=== PATIENT | male | born 1965 | race Two or more races ===

== ENCOUNTER 2016-05-22 10:39 | Emergency (ER) | payer MEDICAID ==
[~2016-05-22] VITALS: Ht 167.6 cm; Wt 65.8 kg
[~2016-05-22 10:39] MED LIST: ASPI81CH43; B COCAP; CARV6.2551; DOCU100T; ENAL10TA86; SEVE800T; SIMV-8
[2016-05-22 12:24] LABS: Basophils # (auto) 0.1 uL; Basophils % (auto) 1.9 % (0.0-2.0); DEFINITIVE VIEW TRANSMISSION; Eosinophils # (auto) 0.7 uL; Eosinophils % (auto) 13.9 % (0.0-7.0); Hematocrit 32.4 % (41.0-53.0); Hemoglobin 10.5 g/dL (13.5-17.5); Lymphocytes # (auto) 0.9 uL; Lymphocytes % (auto) 16.7 % (10.0-50.0); Mean Corpuscular Hemoglobin 27.6 pg (28.0-32.0); Mean Corpuscular Hgb Conc. 32.3 g/dL (32.0-36.0); Mean Corpuscular Volume 85.4 fL (80.0-100.0); Mean Platelet Volume 9.5 fL (7.4-10.4); Monocytes # (auto) 0.6 uL; Monocytes % (auto) 11.4 % (0.0-12.0); Neutrophils # (auto) 2.9 uL; Neutrophils % (auto) 56.1 % (37.0-80.0); Platelet Count (auto) 148 10^3/uL (140-450); Red Cell Distribution Width 16.8 % (11.6-16.0); White Blood Cell 5.1 10^3/uL (4.4-10.8)
[2016-05-22 12:32] LABS: Partial Thromboplastin Time 30.5 sec (22.64-33.71)
[2016-05-22 12:38] LABS: BUN/Creatinine Ratio 3.7; Calcium 8.4 mg/dL (8.5-10.1); Potassium 4.1 mmol/L (3.5-5.1)
[2016-05-22 13:04] LABS: INR 1.22 (0.9-1.15); Prothrombin Time 13.2 sec (9.37-12.3)
[2016-05-22 14:02] VITALS: BP 137/83
== END 2016-05-22 15:58 | disposition home or self-care (01) ==
LOC: EDBD 10:39 → ER 10:39
DX: T82.838A Hemorrhage due to vascular prosthetic devices, implants and grafts, initial encounter (principal); I13.11 Hypertensive heart and chronic kidney disease without heart failure, with stage 5 chronic kidney disease, or end stage renal disease; I50.9 Heart failure, unspecified; E11.22 Type 2 diabetes mellitus with diabetic chronic kidney disease; N18.6 End stage renal disease; E78.5 Hyperlipidemia, unspecified; I25.2 Old myocardial infarction; E07.9 Disorder of thyroid, unspecified; Z95.1 Presence of aortocoronary bypass graft; Z90.49 Acquired absence of other specified parts of digestive tract; Z87.891 Personal history of nicotine dependence; Z99.2 Dependence on renal dialysis; Y93.89 Activity, other specified; Y99.8 Other external cause status; Y92.89 Other specified places as the place of occurrence of the external cause
CPT/HCPCS: 36415; 80048; 85025; 85610; 85730; 94761

== ENCOUNTER 2018-05-17 20:35 | Emergency (ER) | payer MEDICAID ==
[~2018-05-17] VITALS: Ht 157.5 cm; Wt 77.1 kg
[2018-05-17 22:04] LABS: Hematocrit 33.2 % (41.0-53.0); Hemoglobin 11.1 g/dL (13.5-17.5); Mean Corpuscular Hemoglobin 30.5 pg (28.0-32.0); Mean Corpuscular Hgb Conc. 33.6 g/dL (32.0-36.0); Platelet Count (auto) 117 10^3/uL (140-450); Red Blood Cells 3.65 10^6/uL (4.5-5.90); Red Cell Distribution Width 15.9 % (11.8-14.3)
[2018-05-17 22:14] LABS: Basophils % (manual) 0 (0.0-2.0); Blast Cells 0; Metamyelocytes % 0; Myelocytes % 0; Promyelocytes % 0; Reactive Lymphocytes 0
[2018-05-17 22:18] LABS: INR 1.09 (0.9-1.15); Partial Thromboplastin Time 29.9 sec (23.78-33.04); Prothrombin Time 11.6 sec (9.27-12.13)
[2018-05-17 22:23] LABS: Albumin 3.4 g/dL (3.4-5.0); Calcium 7.2 mg/dL (8.5-10.1); Potassium 3.3 mmol/L (3.5-5.1)
[2018-05-17 22:25] LABS: BUN/Creatinine Ratio 3.3; Bilirubin, Total 0.7 mg/dL (0.2-1.0); Total Protein 6.8 g/dL (6.4-8.2)
[2018-05-17 23:27] LABS: Band Neutrophils % (manual) 4; Eosinophils % (manual) 14 (0-7); Lymphocytes % (manual) 16 (10.0-50.0); Monocytes % (manual) 12 (0-12)
[2018-05-17 23:54] VITALS: BP 167/89
== END 2018-05-18 00:41 | disposition home or self-care (01) ==
LOC: EDBD 20:35 → ER 20:44
DX: T82.49XA Other complication of vascular dialysis catheter, initial encounter (principal); D63.8 Anemia in other chronic diseases classified elsewhere; I13.2 Hypertensive heart and chronic kidney disease with heart failure and with stage 5 chronic kidney disease, or end stage renal disease; E11.22 Type 2 diabetes mellitus with diabetic chronic kidney disease; N18.6 End stage renal disease; I50.9 Heart failure, unspecified; I25.2 Old myocardial infarction; Z86.73 Personal history of transient ischemic attack (TIA), and cerebral infarction without residual deficits; Z95.1 Presence of aortocoronary bypass graft; Y92.89 Other specified places as the place of occurrence of the external cause; Z99.2 Dependence on renal dialysis; Z87.891 Personal history of nicotine dependence
CPT/HCPCS: 36415; 80053; 85007; 85027; 85610; 85730; 93005

== ENCOUNTER 2019-04-06 15:10 | Emergency (ER) | payer MEDICAID ==
[~2019-04-06] VITALS: Ht 167.6 cm; Wt 68.0 kg
[~2019-04-06 15:10] MED LIST changes: -DOCU100T; +DOCU100T23
[2019-04-06 15:23] VITALS: BP 177/102
== END 2019-04-06 21:00 | disposition left against medical advice (07) ==
LOC: ER 15:10 → EDBD 15:10 → ER 21:00
DX: T82.590A Other mechanical complication of surgically created arteriovenous fistula, initial encounter (principal); I13.2 Hypertensive heart and chronic kidney disease with heart failure and with stage 5 chronic kidney disease, or end stage renal disease; E11.22 Type 2 diabetes mellitus with diabetic chronic kidney disease; N18.6 End stage renal disease; E78.5 Hyperlipidemia, unspecified; I50.9 Heart failure, unspecified; Z86.73 Personal history of transient ischemic attack (TIA), and cerebral infarction without residual deficits; Z99.2 Dependence on renal dialysis; Z79.4 Long term (current) use of insulin; Z87.891 Personal history of nicotine dependence

== ENCOUNTER 2019-11-19 19:48 | Inpatient (IN) | payer MEDICAID ==
[~2019-11-19] VITALS: Ht 154.9 cm; Wt 61.6 kg
[2019-11-19] MEDS ORDERED: ACETAMINOPHEN 325 MG TAB PO ONE (20:30)
[2019-11-19 20:48] LABS: Basophils # (auto) 0 10 ^3/uL (0-0.2); Basophils % (auto) 0.1 % (0.0-2.0); Eosinophils # (auto) 0 10 ^3/uL (0-0.8); Eosinophils % (auto) 0.1 % (0.0-7.0); Hematocrit 32.7 % (41.0-53.0); Hemoglobin 10.4 g/dL (13.5-17.5); Lymphocytes # (auto) 0.3 10 ^3/uL (0.4-5.4); Mean Corpuscular Hemoglobin 27.9 pg (28.0-32.0); Mean Corpuscular Hgb Conc. 31.9 g/dL (32.0-36.0); Mean Corpuscular Volume 87.6 fL (80.0-100.0); Monocytes # (auto) 0.8 10 ^3/uL (0-1.3); Monocytes % (auto) 5.8 % (0.0-12.0); Neutrophils # (auto) 12.6 10 ^3/uL (1.6-8.6); Platelet Count (auto) 162 10^3/uL (140-450); Red Blood Cells 3.73 10^6/uL (4.5-5.90); Red Cell Distribution Width 16.6 % (11.8-14.3); White Blood Cell 13.7 10^3/uL (4.4-10.8)
[2019-11-19 21:08] LABS: Albumin 3.1 g/dL (3.4-5.0); Calcium 8.9 mg/dL (8.5-10.1); Potassium 3.4 mmol/L (3.5-5.1)
[2019-11-19 21:10] LABS: BUN/Creatinine Ratio 7.9
[2019-11-19 21:15] LABS: Bilirubin, Total 0.7 mg/dL (0.2-1.0); Total Protein 7.9 g/dL (6.4-8.2)
[2019-11-19] MEDS ORDERED: cefTRIAXone 1GM/50ML D5W 50 ML IV ONE (21:15)
[2019-11-19 21:33] LABS: INR 1.22 (0.9-1.15); Partial Thromboplastin Time 29.6 sec (23.0-31.2)
[2019-11-19] MEDS ORDERED: metroNIDAZOLE 500MG/100ML 100 ML IV ONE (23:30)
[2019-11-20 00:15] LABS: Amylase 39 U/L (25-115); Lipase 64 U/L (73-393)
[2019-11-20] MEDS ORDERED: ONDANSETRON HCL 4 MG/2 ML VIAL IV PRN (00:45)
[2019-11-20] MEDS ORDERED: MORPHINE SULF INJ 2 MG/ML SYRINGE 1ML IV PRN (00:45)
[2019-11-20] MEDS ORDERED: PANTOPRAZOLE 40 MG/10 ML VIAL INJ IV ONE (00:45)
[2019-11-20] MEDS ORDERED: DEXTROSE (50%) 50ML SYRG IV PRN ×2 (00:45→03:30)
[2019-11-20] MEDS ORDERED: NITROGLYCERIN 0.4 MG SL TAB SL PRN (00:45)
[2019-11-20] MEDS ORDERED: FUROSEMIDE 40 MG/4 ML VIAL IV ONE (00:45)
[2019-11-20] MEDS ORDERED: ACETAMINOPHEN 325 MG TAB PO PRN (00:45)
[2019-11-20 01:37] LABS: Lactic Acid w/Reflex 2.4 mmol/L (0.4-2.0)
[2019-11-20 02:44] LABS: CRP High Sensitivity > 19 mg/dL (< 0.3)
[2019-11-20] MEDS ORDERED: hydrALAZINE HCL 20 MG/ML VL IV PRN (03:30)
[2019-11-20] MEDS ORDERED: InsuLIN REG 1unit/0.01ml Soln (100units/ml) SC SCH (06:00)
[2019-11-20] MEDS ORDERED: ACCU-CHEK COMFORT CURVE STRIP VI SCH (06:00)
[2019-11-20] MEDS ORDERED: metroNIDAZOLE 500MG/100ML 100 ML IV SCH (06:00)
[2019-11-20] MEDS: HEPARIN SODIUM (PORCINE) 5000 UNITS/ML 1ML VIAL SC SCH ×3 (06:46→21:49)
[2019-11-20] MEDS: ACCU-CHEK COMFORT CURVE STRIP VI SCH ×4 (06:55→23:35)
[2019-11-20] MEDS: InsuLIN REG 1unit/0.01ml Soln (100units/ml) SC SCH ×4 (06:56→23:36)
[2019-11-20] MEDS ORDERED: cefTRIAXone 1GM/50ML D5W 50 ML IV SCH (09:00)
[2019-11-20] MEDS ORDERED: ASPirin 81 mg TAB PO SCH (10:00)
[2019-11-20] MEDS ORDERED: PANTOPRAZOLE 40 MG/10 ML VIAL INJ IV SCH (10:00)
[2019-11-20] MEDS ORDERED: D5W/SOD CHL 0.45% 1,000 ML IV SCH (10:15)
[2019-11-20] MEDS: ACETAMINOPHEN 325 MG TAB PO PRN ×3 (10:57→13:56)
[2019-11-20] MEDS ORDERED: ACETAMINOPHEN 325 MG TAB PO ONE (10:57)
[2019-11-20 11:12] LABS: BUN/Creatinine Ratio 8.6; Calcium 8.3 mg/dL (8.5-10.1); Potassium 3.5 mmol/L (3.5-5.1)
[2019-11-20] MEDS ORDERED: SODIUM CHLORIDE 0.9% 250 ML IV ONE (13:30)
[2019-11-20] MEDS: SODIUM CHLORIDE 0.9% 1,000 ML IV SCH (14:30)
--- NOTE | 2019-11-20 17:17 | NUR ---
Telemetry admit from [facility]KA WALKER admitted to Telemetry unit after SBAR received. Patient oriented to BRIJESH SPANGLER RN primary RN, unit, room, bed, and unit policies regarding patient care and visiting hours. Patient now on continuous telemetry monitoring, tele box # 32 and telemetry reading on arrival to unit is SR. Patient placed on bedside oxygen, weighed by bedscale and encouraged to call if they need something. All questions and concerns addressed, patient verbalized understanding.
[2019-11-20 17:24] VITALS: BP 104/51
--- NOTE | 2019-11-20 18:06 | NUR ---
ATTEMPTED MED REC PATIENT STATES "I DO NOT KNOW MY MEDICATIONS BUT YOU CAN CALL MY DAUGHTER" DAUGHTER STATES " I LEFT THE MEDICATIONS AT THE HOSPITAL WITH HIM. UPON ASSESSMENT MEDICATION ARE NOT CURRENTLY IN PATIENTS BELONGINGS. CALL PLACED TO ER TO FIND MEDICATION
--- NOTE | 2019-11-20 18:28 | NUR ---
CALL PLACED TO ER RE: MEDICAITON MEDICATION WAS LISTED ON BELONGING SHEET HOWEVER THEY WERE NOT WITH PATIENT. PER RATTLE LEAK AND SQUEAK REPAIRER DALTON SHE WILL LOOK FOR THE MEDICAITONS
--- NOTE | 2019-11-20 19:25 | NUR ---
Opening shift note Assumed care of patient from day shift RNAnshu. Patient A&Ox4, respirations even and non-labored with no s/s of distress. Discussed POC and answered questions for the patient who verbalized understanding. Bed in lowest locked position with 2 side rails up, call light left within the hands of the patient. Will continue to monitor Q1hr and PRN.
--- NOTE | 2019-11-20 19:40 | NUR ---
Patients home medications A ziplock bag containing 5 medication bottles were brought to the nursing station from the ED. Will process and take to the pharmacy.
[2019-11-20 22:00] VITALS: BP 99/61
[2019-11-20] MEDS ORDERED: ATORVASTATIN 20 MG TAB PO SCH (22:00)
[2019-11-21] MEDS: SODIUM CHLORIDE 0.9% 1,000 ML IV SCH ×2 (03:02→18:44)
--- NOTE | 2019-11-21 04:25 | NUR ---
Low blood pressure Patient BP 98/42. Patient A&Ox4, and denying dizziness. No s/s of distress at this time. Will continue to monitor.
--- NOTE | 2019-11-21 05:30 | NUR ---
Assisted patient to BSC Patient stated that he needed to have a BM. Observed patient dangle at the bedside. Used minimal assistance with standing, pivoting and sitting. Patient had a moderate, light brown, formed stool and was able to stand and get back into bed. Patient denied feeling dizzy or SOB and tolerated well.
--- NOTE | 2019-11-21 05:39 | NUR ---
Phone call from family Spoke with patients family, discussed patients POC and answered questions.
[2019-11-21] MEDS: ACCU-CHEK COMFORT CURVE STRIP VI SCH ×3 (06:00→17:34)
[2019-11-21] MEDS: InsuLIN REG 1unit/0.01ml Soln (100units/ml) SC SCH ×3 (06:00→17:35)
[2019-11-21] MEDS: HEPARIN SODIUM (PORCINE) 5000 UNITS/ML 1ML VIAL SC SCH ×3 (06:37→22:00)
[2019-11-21] MEDS ORDERED: SODIUM CHL 0.9% 1000 ML BAG XX ONE (07:00)
--- NOTE | 2019-11-21 07:19 | NUR ---
Closing shift note Patient resting without s/s of distress or c/o pain at this time. Endorsed care to day shift RNJewel.
--- NOTE | 2019-11-21 07:20 | NUR ---
Opening Shift Note Assumed care of patient, awake and alert. No S/S of distress/SOB or pain. Instructed on POC and to call for assist PRN, will continue to monitor for changes Q1hr and PRN. Assisted patient with ADLs. Bed locked in lowest position, HOB elevated at least 30 degrees, call light is within reach and side rails up x 2.
[2019-11-21 07:43] LABS: Basophils # (auto) 0 10 ^3/uL (0-0.2); Basophils % (auto) 0.1 % (0.0-2.0); Eosinophils # (auto) 0 10 ^3/uL (0-0.8); Hematocrit 28.1 % (41.0-53.0); Hemoglobin 9.1 g/dL (13.5-17.5); Lymphocytes # (auto) 0.2 10 ^3/uL (0.4-5.4); Lymphocytes % (auto) 2.4 % (10.0-50.0); Mean Corpuscular Hemoglobin 28.6 pg (28.0-32.0); Mean Corpuscular Hgb Conc. 32.5 g/dL (32.0-36.0); Mean Corpuscular Volume 87.9 fL (80.0-100.0); Monocytes # (auto) 0.8 10 ^3/uL (0-1.3); Monocytes % (auto) 8.6 % (0.0-12.0); Neutrophils # (auto) 8.3 10 ^3/uL (1.6-8.6); Neutrophils % (auto) 88.9 % (37.0-80.0); Nucleated Red Blood Cells % 0.2 %; Platelet Count (auto) 114 10^3/uL (140-450); Red Blood Cells 3.19 10^6/uL (4.5-5.90); Red Cell Distribution Width 16.8 % (11.8-14.3); White Blood Cell 9.3 10^3/uL (4.4-10.8)
[2019-11-21 08:10] LABS: BUN/Creatinine Ratio 9.9; Bilirubin, Total 0.5 mg/dL (0.2-1.0); Calcium 6.5 mg/dL (8.5-10.1); Total Protein 4.8 g/dL (6.4-8.2)
--- NOTE | 2019-11-21 08:23 | NUR ---
CRITICAL TROP RECEIVED FROM LAB 0.774 Addendum: 11/21/19 at 0849 by BONI LONG RN RN DR DAWN IS AWARE
[2019-11-21 08:36] VITALS: BP 106/53
--- NOTE | 2019-11-21 09:00 | NUR ---
PATIENT TAKEN DOWN FOR HIDA SCAN
--- NOTE | 2019-11-21 10:00 | NUR ---
patient returned to room from HIDA scan no distress noted at this time. continue care
[2019-11-21 13:00] VITALS: BP 115/73
--- NOTE | 2019-11-21 13:30 | NUR ---
DIALYSIS PATIENT BEGAN DIALYSIS TREATMENT. DIALYSIS NURSE AT BEDSIDE. NO DISTRESS NOTED AT THIS TIME. CONTINUE CARE.
--- NOTE | 2019-11-21 16:23 | NUR ---
DIALYSIS COMPLETE DIALYSIS COMPLETE. PATIENT EXHIBITING NO SIGNS OF DISTRESS AT THIS TIME. FINAL BLOOD PRESSURE WAS 91/46
[2019-11-21 16:53] VITALS: BP 102/52
--- NOTE | 2019-11-21 19:17 | NUR ---
CLOSING NOTE ENDORSED CARE TO NOC SHIFT RN
[2019-11-21 22:00] VITALS: BP 90/52
[2019-11-21] MEDS ORDERED: HEPARIN SODIUM (PORCINE) 5000 UNITS/ML 1ML VIAL ONE (22:01)
--- NOTE | 2019-11-21 22:25 | NUR ---
PATIENT REFUSED MEDICATION PATIENT EDUCATED ON IMPORTANCE OF MEDICATION. PATIENT STATES "I DONT WANT IT".
--- NOTE | 2019-11-21 22:59 | NUR ---
MD DONOHUE MADE AWARE PATIENT REFUSED 2200 HEPARIN 5,000 UNITS.
[2019-11-22] VITALS (75 sets, daily range): BP systolic 80–128; BP diastolic 19–86
[2019-11-22] MEDS: ACCU-CHEK COMFORT CURVE STRIP VI SCH ×5 (00:05→23:54)
[2019-11-22] MEDS: InsuLIN REG 1unit/0.01ml Soln (100units/ml) SC SCH ×5 (00:08→23:54)
--- NOTE | 2019-11-22 00:19 | NUR ---
BLOOD PRESSURE PATIENT HAS A BP OF 83/50 HR 95. PER COMMUNICATION ORDER, BOLUS OF 250ML/HR IS STARTED AT THIS TIME. WILL CONTINUE TO MONITOR.
--- NOTE | 2019-11-22 01:38 | NUR ---
BLOOD PRESSURE REASSESSMENT AFTER BOLUS OF 250ML/HR PATIENTS BP IS NOW 69/29 HR 92. PER COMMUNICATION ORDERS, PATIENT NEEDS TO BE GIVEN LEVOPHED. NEW ORDERS RECEIVED TO TRANSFER PATIENT TO ICU. WILL CARRY OUT ORDERS.
[2019-11-22] MEDS ORDERED: NOREPINEPHRINE 8 MG/250ML KIT 250 ML IV ONE (01:43)
--- NOTE | 2019-11-22 02:35 | NUR ---
Pt. arrived to chely via bed, transferred to chely bed, a/o, on levophed gtt at 4mcg/min.connected to monitor and O2 at 3l/min. pt is blind. c/o of being cold, additional blankets offered.
--- NOTE | 2019-11-22 02:42 | NUR ---
PATIENT TRANSFERRED TO ROOM 261. REPORT GIVEN TO STEVAN.
[2019-11-22] MEDS: MORPHINE SULFATE 4 MG/ML SYR/VIAL IV PRN (03:10)
[2019-11-22] MEDS: NOREPINEPHRINE 8 MG/250ML KIT 250 ML IV SCH (03:28)
--- NOTE | 2019-11-22 07:15 | NUR ---
received patient awake and resting, no c/o pain or discomfort, on npo to finish hida scan test this morning and agrees with plan, iv at left forearm intact and patent with levo drip to maintain Bp systolic 90 and above. Responds appropriately to staff.
[2019-11-22] MEDS: HEPARIN SODIUM (PORCINE) 5000 UNITS/ML 1ML VIAL SC SCH ×3 (07:46→21:44)
--- NOTE | 2019-11-22 08:15 | NUR ---
Patient down to Nuclear Med area to finish Hida Scan study with portable monitor and O2, tolerated study well and back to room. Patient resting comfortably in bed, reconnected to hall monitor. Iv infusing weel; remains on Levo dripat 6mcg/minute to maintai systolic Bp above 90.
[2019-11-22] MEDS: SODIUM CHLORIDE 0.9% 1,000 ML IV SCH ×2 (08:28→23:08)
--- NOTE | 2019-11-22 11:10 | NUR ---
RN Notes Patient able to nap at short intervals, turns to side when asked and mary sips of water.
--- NOTE | 2019-11-22 11:30 | NUR ---
RN Notes Patient easily awakens to verbal stimuli and cooperative, fingerstick blood sugar 51, given apple juice po as per protocol, took juice well.
--- NOTE | 2019-11-22 12:41 | NUR ---
Nutrition Assessment Notes Wt: 93.5 kg. please see attached link for complete assessment Est Energy needs BW 55 [id number] kcals (30-33 kcal/kgBW), Est Protein needs: 66-77 gms/day (1.2-1.4 gm/kgBW r/t HD). Will continue to monitor and reassess prn. Addendum: 11/22/19 at [address] Amended: Links added.
--- NOTE | 2019-11-22 13:20 | NUR ---
RN NOTES PATIENT TAKING FLUIDS WELL, DIET ORDERED.
[2019-11-22] MEDS: ACETAMINOPHEN 325 MG TAB PO PRN (16:00)
--- NOTE | 2019-11-22 17:30 | NUR ---
SHIFT SUMMARY PATIENT REMAINS ON LEVOPHED DRIP TO KEEP SYSTOLIC BP ABOVE 90; TRIED TITRATING DOWN TO 4 MCG/MIN, ANUJA DROPS TO 80 SYSTOLIC, REMAINS ALERT AND COOPERATIVE, POOR APPETITE, ATE ONLY PEACHES FOR DINNER, PATIENT FEEDER. CONTINUES TO TEL STAFF HE IS OK BUT NOTED TO MOAN EVERY NOW AND THEN, TOLD STAFF ITS HIS HABIT.
[2019-11-22] MEDS: cefTRIAXone 1GM/50ML D5W 50 ML IV SCH (18:15)
[2019-11-22] MEDS: metroNIDAZOLE 500MG/100ML 100 ML IV SCH (19:03)
--- NOTE | 2019-11-22 19:40 | NUR ---
OPENING NOTE REPORT RECEIVED FROM KEARA MORRISON PATIENT IS A/OX4, LEGALLY BLIND MALE WHO IS CONNECTED TO CONTINUOUS BEDSIDE MONITORS. PATIENT IS ON 3L NASAL CANNULA SPO2 97%. PHYSICAL ASSESSMENT-SKIN ALL INTACT. RIGHT ARM FISTULA FOR HD. RECEIVED PATIENT ON 6MCG OF LEVOPHED, BP IN LOW 100'S. LEVO RUNNING THROUGH PERIPHERAL IV TO RIGHT WRIST, NO SIGNS OF INFILTRATION OR EXTRAVASATION NOTED. IV TO LEFT HAND RUNNING NS AT 70ML/HR. POC DISCUSSED WITH PATIENT, PT VERBALIZED UNDERSTANDING. FALL PRECAUTIONS IN PLACE, CALL LIGHT WITHIN REACH.
[2019-11-23] VITALS (88 sets, daily range): BP systolic 68–142; BP diastolic 22–56
[2019-11-23] MEDS: NOREPINEPHRINE 8 MG/250ML KIT 250 ML IV SCH (00:04)
--- NOTE | 2019-11-23 00:58 | NUR ---
FAMILY PATIENTS DAUGHTER LUDIN CALLED. CORRECT PASSWORD GIVEN BY LUDIN. FAMILY UPDATED ON PATIENT STATUS, ALL QUESTIONS ANSWERED.
[2019-11-23] MEDS: metroNIDAZOLE 500MG/100ML 100 ML IV SCH ×3 (01:36→17:17)
--- NOTE | 2019-11-23 02:30 | NUR ---
AM CARES PATIENT GIVEN COMPLETE BED BATH WITH LINEN AND GOWN CHANGE BY MERRITT HARDING.
[2019-11-23 02:59] LABS: Basophils # (auto) 0 10 ^3/uL (0-0.2); Basophils % (auto) 0.1 % (0.0-2.0); Eosinophils # (auto) 0 10 ^3/uL (0-0.8); Eosinophils % (auto) 0.1 % (0.0-7.0); Hematocrit 33.9 % (41.0-53.0); Hemoglobin 10.6 g/dL (13.5-17.5); Lymphocytes # (auto) 0.4 10 ^3/uL (0.4-5.4); Lymphocytes % (auto) 1.6 % (10.0-50.0); Mean Corpuscular Hemoglobin 27.8 pg (28.0-32.0); Mean Corpuscular Hgb Conc. 31.4 g/dL (32.0-36.0); Mean Corpuscular Volume 88.6 fL (80.0-100.0); Monocytes # (auto) 1.8 10 ^3/uL (0-1.3); Monocytes % (auto) 7.5 % (0.0-12.0); Neutrophils # (auto) 21.9 10 ^3/uL (1.6-8.6); Neutrophils % (auto) 90.7 % (37.0-80.0); Nucleated Red Blood Cells % 0.1 %; Platelet Count (auto) 175 10^3/uL (140-450); Red Blood Cells 3.82 10^6/uL (4.5-5.90); Red Cell Distribution Width 17.5 % (11.8-14.3); White Blood Cell 24.2 10^3/uL (4.4-10.8)
[2019-11-23 03:21] LABS: BUN/Creatinine Ratio 7.6; Calcium 8.2 mg/dL (8.5-10.1); Potassium 3.7 mmol/L (3.5-5.1)
[2019-11-23] MEDS: ACETAMINOPHEN 325 MG TAB PO PRN ×2 (03:27→23:14)
--- NOTE | 2019-11-23 03:27 | NUR ---
PAIN PATIENT C/O 4/10 PAIN TO HIS ABDOMEN. PATIENT REQUESTED TYLENOL. TYLENOL GIVEN ORDERED. SEE EMAR.
--- NOTE | 2019-11-23 04:27 | NUR ---
PAIN REASSESSMENT PATIENT NOW SLEEPING COMFORTABLY IN BED, NO LONGER MOANING IN PAIN.
[2019-11-23] MEDS: InsuLIN REG 1unit/0.01ml Soln (100units/ml) SC SCH ×4 (06:00→23:43)
[2019-11-23] MEDS: ACCU-CHEK COMFORT CURVE STRIP VI SCH ×4 (06:06→23:43)
[2019-11-23] MEDS: HEPARIN SODIUM (PORCINE) 5000 UNITS/ML 1ML VIAL SC SCH ×3 (06:12→20:41)
[2019-11-23] MEDS ORDERED: SODIUM CHL 0.9% 1000 ML BAG XX ONE (07:00)
--- NOTE | 2019-11-23 07:15 | NUR ---
CLOSING PATIENT RESTING COMFORTABLY IN BED. LEVO GTT AT 4MCG. NO SIGNS OF DISTRESS. REPORT ENDORSED TO DAYSHIFT TAMIKO CEDENO TO ASSUME CARE OF PATIENT.
--- NOTE | 2019-11-23 07:15 | NUR ---
START OF SHIFT RECEIVED PATIENT RELAXED AND RESTING, IV DRIPS WITH LEVOPHED AT 4MCG/MIN TO KEEP SYSTOLIC BP ABOVE 90 ORDERED, O2 SATURATION GOOD ON 3 L/MIN O2 VIA NASAL CANNULA. PATIENT ALLOWED TO SLEEP.
[2019-11-23] MEDS: cefTRIAXone 1GM/50ML D5W 50 ML IV SCH (08:29)
--- NOTE | 2019-11-23 13:20 | NUR ---
RN NOTES PATIENT TOLERATED HEMODIALYSIS TREATMENT, REMOVED 1000 ML OF FLUID, BP MAINTAINED AT ABOVE 90 SYSTOLIC ON LEVOPHED DRIP, VETERINARY TECHNOLOGIST SAW PATIENT AND ORDERED MIDODRINE TO KEEP BP UP. WILL START AT 1800.
[2019-11-23] MEDS: SODIUM CHLORIDE 0.9% 1,000 ML IV SCH (14:30)
--- NOTE | 2019-11-23 15:16 | NUR ---
Nutrition Assessment Notes Please refer to link for full assessment notes. Est Energy needs: [id number] kcals (30-35 kcal/kgBW) Est Protein needs: 57-63 gms/day (1.1-1.2 gm/kgBW) Will continue to monitor and reassess prn. Addendum: 11/23/19 at [address] Amended: Links added.
--- NOTE | 2019-11-23 15:30 | NUR ---
RN NOTES PATIENT RESTING AFTER HEMODIALYSIS, REFUSED BATH, WOULD RATHER SLEEP. TOOK JELLO FOR LUNCH, NO APPETITE.
[2019-11-23] MEDS: MIDODRINE HCL 10 MG TAB PO SCH (17:17)
--- NOTE | 2019-11-23 18:00 | NUR ---
SHIFT SUMMARY PATIENT ABLE TO NAP AT INTERVALS, TURNS SELF SIDE TO SIDE FOR COMFORT, TOLERATED HEMODIALYSIS TREATMENT, LEVOPHED DRIP BEING WEANED AND NOW AT 4MCG/MINUTE ; ALERT AND COOPERATIVE. REFUSED TO EAT BUT WILL TAKE FLUIDS AND TOOK CHICKEN BROTH FOR DINNER.
--- NOTE | 2019-11-23 20:00 | NUR ---
SHIFT OPENING NOTE RECEIVED PATIENT ALERT AND ORIENTED X4. LEGALLY BLIND. NO SOB, DISTRESS OR PAIN NOTED. ON 3L NC POX 100%. LEVOPHED AT 4MCG BP SUSTAINING IN THE 120S, DECREASED TO 2 MCG. PATIENT IS ANURIC. NS INFUSING AT 70 ML/H. RECEIVED HEMODIALYSIS TODAY WITH 1L OUT FROM RIGHT GROIN DIALYSIS CATH. AV FISTULA TO THE SUSHANT NOT IN USE YET. PHYSICAL ASSESSMENT COMPLETED, SEE INTERVENTIONS. INSTRUCTED ON POC AND TO CALL FOR ASSIST NEEDED. BED IS IN THE LOWEST POSITION WITH SIDE RAILS UP X2, CALL LIGHT IS WITHIN REACH.
--- NOTE | 2019-11-23 20:16 | NUR ---
ASSISTED TO BSC HAD A BM. ASSISTED BACK TO BED SAFELY.
[2019-11-23] MEDS ORDERED: EPOETIN ALFA 10,000 UNIT/1 ML VIAL SC ONE (21:00)
[2019-11-24] VITALS (85 sets, daily range): BP systolic 88–136; BP diastolic 27–63
[2019-11-24] MEDS: metroNIDAZOLE 500MG/100ML 100 ML IV SCH ×3 (01:38→18:27)
--- NOTE | 2019-11-24 02:00 | NUR ---
ROUNDS PATIENT QUIETLY LAYING IN BED SLEEPING. OCCASIONALLY MOANS LOUDLY BUT SAS HES NOT IN PAIN AND DOESN'T WANT ANYTHING FOR PAIN. LEVOPHED AT 2 MCG/MIN. WILL CONTINUE TO CLOSELY MONITOR.
[2019-11-24] MEDS: NOREPINEPHRINE 8 MG/250ML KIT 250 ML IV SCH (03:00)
[2019-11-24] MEDS: SODIUM CHLORIDE 0.9% 1,000 ML IV SCH ×2 (03:18→08:39)
[2019-11-24 04:07] LABS: Alanine Aminotransferase 15 U/L (16-61); Albumin 1.9 g/dL (3.4-5.0); Anion Gap 8 (5-15); Aspartate Aminotransferase 17 U/L (15-37); BUN/Creatinine Ratio 6.8; Blood Urea Nitrogen 28 mg/dL (7-18); Calcium 7.8 mg/dL (8.5-10.1); Carbon Dioxide 30 mmol/L (21-32); Chloride 103 mmol/L (98-107); GFR African American 19 mL/min; GFR Non-African American 16 mL/min; Glucose 102 mg/dL (74-106); Lipase 22 U/L (73-393); Potassium 3.9 mmol/L (3.5-5.1); Sodium 141 mmol/L (136-145)
[2019-11-24 04:09] LABS: Alkaline Phosphatase 202 U/L (45-117); Bilirubin, Total 0.7 mg/dL (0.2-1.0); Total Protein 5.5 g/dL (6.4-8.2)
[2019-11-24 04:54] LABS: Basophils # (auto) 0 10 ^3/uL (0-0.2); Basophils % (auto) 0.2 % (0.0-2.0); Eosinophils # (auto) 0 10 ^3/uL (0-0.8); Eosinophils % (auto) 0.2 % (0.0-7.0); Hematocrit 29.4 % (41.0-53.0); Hemoglobin 9.5 g/dL (13.5-17.5); Lymphocytes # (auto) 0.4 10 ^3/uL (0.4-5.4); Lymphocytes % (auto) 1.9 % (10.0-50.0); Mean Corpuscular Hemoglobin 27.7 pg (28.0-32.0); Mean Corpuscular Hgb Conc. 32.4 g/dL (32.0-36.0); Mean Corpuscular Volume 85.5 fL (80.0-100.0); Monocytes # (auto) 1.4 10 ^3/uL (0-1.3); Monocytes % (auto) 6.6 % (0.0-12.0); Neutrophils # (auto) 18.8 10 ^3/uL (1.6-8.6); Neutrophils % (auto) 91.1 % (37.0-80.0); Nucleated Red Blood Cells % 0.1 %; Platelet Count (auto) 162 10^3/uL (140-450); Red Blood Cells 3.44 10^6/uL (4.5-5.90); Red Cell Distribution Width 16.7 % (11.8-14.3); White Blood Cell 20.6 10^3/uL (4.4-10.8)
[2019-11-24] MEDS: InsuLIN REG 1unit/0.01ml Soln (100units/ml) SC SCH ×3 (06:00→18:00)
[2019-11-24 06:05] LABS: INR 1.6 (0.9-1.15)
[2019-11-24] MEDS: ACCU-CHEK COMFORT CURVE STRIP VI SCH ×3 (06:08→18:00)
[2019-11-24] MEDS: HEPARIN SODIUM (PORCINE) 5000 UNITS/ML 1ML VIAL SC SCH ×3 (06:12→21:24)
[2019-11-24] MEDS: MIDODRINE HCL 10 MG TAB PO SCH ×3 (06:12→18:27)
--- NOTE | 2019-11-24 07:24 | NUR ---
END OF SHIFT REPORT GIVEN AND CARE ENDORSED TO SHILOH MORRISON.
[2019-11-24] MEDS: cefTRIAXone 1GM/50ML D5W 50 ML IV SCH (09:30)
[2019-11-24] MEDS: ASPirin 81 mg TAB PO SCH (11:57)
--- NOTE | 2019-11-24 12:37 | NUR ---
Resumed care at 0715, orders reviewed and ongoing assessments being done. Upon arrival in abed awake and able to make needs known. Is legally blind and states he sees shadows. Does need assistance with self care due to blindness. Levophed infusing for hemodynamic stability. Upon arrival at 2mcg/min. Infusing via peripheral line, #20 guage to left wrist area. No signs of infiltration. Stopped at 1045 BP 116/44. Present BP 99/38 (59) asymptomatic. Continue to monitor. Per Dr. Barry okay if SBP >90. Continue with IVF. Dr. Barry rounded at [address] Pool, equipment maintenance tech also rounded earlier today. 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 He stated that he does not taken any pain medication at home and does not want to be put on drugs. Repositioning for comfort as needed. Able to move about in bed and shift weight. Poor oral intake and has been refusing meals. Has only taken sips of water and drank one carton of apple juice.
--- NOTE | 2019-11-24 14:42 | NUR ---
Resting quietly in bed at this time.
[2019-11-24] MEDS: ONDANSETRON HCL 4 MG/2 ML VIAL IV PRN (16:24)
--- NOTE | 2019-11-24 16:48 | NUR ---
Audible dry heaving, went into room and he started to vomit, thin light brown/yellow fluid. Assisted with oral care and offered antiemetic medication. Zofran 4mg given IVP at 1624.
--- NOTE | 2019-11-24 18:22 | NUR ---
Nausea resolved and once again declined his meal. SBP > 90 since Levophed discontinued at 1045, continue to monitor.
--- NOTE | 2019-11-24 20:00 | NUR ---
SHIFT OPENING NOTE RECEIVED PATIENT ALERT AND ORIENTED X4. LEGALLY BLIND. NO SOB, DISTRESS OR PAIN NOTED. ON 3L NC POX 98%. LEVOPHED OFF SINCE 10:45 THIS MORNING. PATIENT IS ANURIC. NS INFUSING AT 70 ML/H. RIGHT GROIN DIALYSIS CATH. AV FISTULA TO THE SUSHANT NOT IN USE YET. OLD FISTULA ON LEFT UPPER ARM. PHYSICAL ASSESSMENT COMPLETED, SEE INTERVENTIONS. INSTRUCTED ON POC AND TO CALL FOR ASSIST NEEDED. BED IS IN THE LOWEST POSITION WITH SIDE RAILS UP X2, CALL LIGHT IS WITHIN REACH.
[2019-11-24] MEDS: ATORVASTATIN 20 MG TAB PO SCH (21:20)
--- NOTE | 2019-11-24 22:40 | NUR ---
HYGIENE CARE PATIENT HAD AN EPISODE OF BOWEL INCONTINENCE. DIARRHEA NOTED ON BED. PATIENT CLEANSED WITH SOAP AND WATER. JESSICA CARE PERFORMED. FULL BED BATH PERFORMED WITH CHG WIPES. GOWN CHANGED. FULL LINEN CHANGE. PATIENT REPOSITIONED FOR COMFORT. TOLERATED IT WELL.
[2019-11-25] VITALS (29 sets, daily range): BP systolic 93–137; BP diastolic 34–63
[2019-11-25] MEDS: ACCU-CHEK COMFORT CURVE STRIP VI SCH ×4 (00:02→17:39)
[2019-11-25] MEDS: metroNIDAZOLE 500MG/100ML 100 ML IV SCH ×3 (02:00→17:39)
[2019-11-25] MEDS: NOREPINEPHRINE 8 MG/250ML KIT 250 ML IV SCH (03:00)
[2019-11-25 04:22] LABS: Basophils # (auto) 0 10 ^3/uL (0-0.2); Basophils % (auto) 0.1 % (0.0-2.0); Eosinophils # (auto) 0.1 10 ^3/uL (0-0.8); Eosinophils % (auto) 0.4 % (0.0-7.0); Hematocrit 28.7 % (41.0-53.0); Hemoglobin 9.2 g/dL (13.5-17.5); Lymphocytes # (auto) 0.3 10 ^3/uL (0.4-5.4); Lymphocytes % (auto) 1.5 % (10.0-50.0); Mean Corpuscular Hemoglobin 27.9 pg (28.0-32.0); Mean Corpuscular Hgb Conc. 32.1 g/dL (32.0-36.0); Mean Corpuscular Volume 86.9 fL (80.0-100.0); Monocytes # (auto) 1.3 10 ^3/uL (0-1.3); Monocytes % (auto) 6.2 % (0.0-12.0); Neutrophils # (auto) 19.8 10 ^3/uL (1.6-8.6); Neutrophils % (auto) 91.8 % (37.0-80.0); Platelet Count (auto) 180 10^3/uL (140-450); Red Blood Cells 3.31 10^6/uL (4.5-5.90); Red Cell Distribution Width 17.2 % (11.8-14.3); White Blood Cell 21.5 10^3/uL (4.4-10.8)
[2019-11-25 04:40] LABS: Magnesium 2.1 mg/dL (1.6-2.6); Potassium 4.1 mmol/L (3.5-5.1)
[2019-11-25 04:42] LABS: BUN/Creatinine Ratio 8.7; Calcium 7.7 mg/dL (8.5-10.1)
[2019-11-25] MEDS: MIDODRINE HCL 10 MG TAB PO SCH ×3 (05:31→17:39)
[2019-11-25] MEDS: InsuLIN REG 1unit/0.01ml Soln (100units/ml) SC SCH ×4 (05:31→17:48)
[2019-11-25] MEDS: HEPARIN SODIUM (PORCINE) 5000 UNITS/ML 1ML VIAL SC SCH ×3 (05:31→20:44)
--- NOTE | 2019-11-25 07:06 | NUR ---
END OF SHIFT REPORT GIVEN AND CARE ENDORSED TO SHILOH MORRISON.
[2019-11-25] MEDS: SODIUM CHLORIDE 0.9% 1,000 ML IV SCH (07:54)
--- NOTE | 2019-11-25 08:44 | NUR ---
Resumed care at 0715, orders reviewed and ongoing assessments being done. Upon arrival in deep sleep but easily awaken. Tired and just wants to sleep. Reviewed plan of care, comprehensive. Declined breakfast, poor oral intake since hospitalization. Has been off Levophed since yesterday 1045 am, BP holding.
[2019-11-25] MEDS: cefTRIAXone 1GM/50ML D5W 50 ML IV SCH (08:59)
[2019-11-25] MEDS: ASPirin 81 mg TAB PO SCH (09:58)
--- NOTE | 2019-11-25 10:23 | NUR ---
PT PT REFUSED PHYSICAL THERAPY THIS MORNING. RN NOTIFIED OF PT'S REFUSAL . Signed: 11/25/19 at 1025 by CELINE SMITH PTT <Co-Signature Required> Co-Signed: 11/25/19 at 1025 by Garrett Anaya PT Addendum: 11/25/19 at 1025 by CELINE SMITH PTT Amended: Links added.
--- NOTE | 2019-11-25 11:42 | NUR ---
Dr. Pool in at 1125. Discussed condition and plan of care. Made him aware that he continues to have the urge to void but no urine output. (ESRD and on hemodialysis) Has been anuric this hospitalization. Patient has stated prior that he does not produce any urine. Per Dr. Pool, june [facility] cath. Discussed with patient and he refused. "I only want the urinal". Urinal has been provided.
--- NOTE | 2019-11-25 12:22 | NUR ---
Nutrition Followup Note Wt 53kg Pt was sleeping with no family at bedside at time of rounds. Pt is with a Renal Standard diet with poor po intake aeb pt with 0 intake recorded since 11/20. The one po intake recorded on 11/20 was 100% per RN note. Consider adding Nepro CS 1 carton BID if pt po intake continues to be poor. Pt is ESRD on HD Est Energy needs BW 55 [id number] kcals (30-33 kcal/kgBW), Est Protein needs: 66-77 gms/day (1.2-1.4 gm/kgBW r/t HD). Will continue to monitor and reassess prn. Labs: BUN 44H, Creat 5.05H, Alb 1.9L, Ca 7.7L BM: Pt with 2 BMs 11/24 per RN note Skin: BS 13 mod risk, full details in aged or disabled care worker note PES: Altered nutrition related lab values r.t current chronic medical condition aeb severe hypoalb elev RFT Comments 1) advance diet as medically feasible 2) refer to CDE oN DC 3) consider prostat 1 packet bid 4) continue current plan of care Expected Outcomes/Goals: pt will have improved labs pt will advance and mary po F/u 3-5 days
--- NOTE | 2019-11-25 12:30 | NUR ---
Once again great urge to void. Offered catheterization. Straight cath with a #16 german catheter per standardized procedure. No urine output.
--- NOTE | 2019-11-25 12:42 | NUR ---
Dr. Olsen in to round. Discussed condition and plan of care. New orders obtain per Dr. Olsen, stable to transfer to the TELE unit. Orders processed.
[2019-11-25] MEDS ORDERED: HEPARIN SODIUM (PORCINE) 5000 UNITS/ML 1ML VIAL ONE (14:18)
--- NOTE | 2019-11-25 15:23 | NUR ---
Declined lunch early. Offered soup and actually ate a small cup of diced pineapple and one carton of cranberry juice.
[2019-11-25] MEDS: TAMSULOSIN HYDROCHLORIDE 0.4 MG CAP PO SCH (17:38)
[2019-11-25] MEDS: Nepro With Carbsteady ButterPecan 8oz Carton PO SCH (18:00)
--- NOTE | 2019-11-25 18:36 | NUR ---
Vital signs remain stable and continues to make needs known. The TELE bed assignment at this time.
--- NOTE | 2019-11-25 20:00 | NUR ---
SHIFT OPENING NOTE RECEIVED PATIENT ALERT AND ORIENTED X4. LEGALLY BLIND. NO SOB, DISTRESS OR PAIN NOTED. ON 3L NC POX 95%. PATIENT IS ANURIC WITH SOMETIMES STILL THE URGE TO URINATE WITH NO OUTPUT. RIGHT GROIN DIALYSIS CATH. AV FISTULA TO THE SUSHANT NOT IN USE YET. OLD FISTULA ON LEFT UPPER ARM. PHYSICAL ASSESSMENT COMPLETED, SEE INTERVENTIONS. INSTRUCTED ON POC AND TO CALL FOR ASSIST NEEDED. BED IS IN THE LOWEST POSITION WITH SIDE RAILS UP X2, CALL LIGHT IS WITHIN REACH.
[2019-11-25] MEDS: ATORVASTATIN 20 MG TAB PO SCH (20:44)
[2019-11-26] VITALS (10 sets, daily range): BP systolic 80–123; BP diastolic 31–41
[2019-11-26] MEDS: ACCU-CHEK COMFORT CURVE STRIP VI SCH ×5 (00:12→23:32)
[2019-11-26] MEDS: metroNIDAZOLE 500MG/100ML 100 ML IV SCH ×3 (01:51→18:28)
--- NOTE | 2019-11-26 02:00 | NUR ---
ROUNDS PATIENT LAYING IN BED WITH EYES CLOSED. MOANS AND GROANS OFTEN, BUT WHEN STAFF WALKS INTO ROOM ASKING HIM IF HE IS IN PAIN, HE SAYS "NO" AND DOES NOT NEED ANYTHING. VS STABLE. SAFETY MEASURES IN PLACE. WILL CONTINUE TO CLOSELY MONITOR.
[2019-11-26 04:46] LABS: Basophils # (auto) 0 10 ^3/uL (0-0.2); Basophils % (auto) 0.1 % (0.0-2.0); Eosinophils # (auto) 0.1 10 ^3/uL (0-0.8); Eosinophils % (auto) 0.5 % (0.0-7.0); Hematocrit 26.6 % (41.0-53.0); Hemoglobin 8.7 g/dL (13.5-17.5); Lymphocytes # (auto) 0.3 10 ^3/uL (0.4-5.4); Lymphocytes % (auto) 2.2 % (10.0-50.0); Mean Corpuscular Hgb Conc. 32.6 g/dL (32.0-36.0); Mean Corpuscular Volume 85.8 fL (80.0-100.0); Monocytes # (auto) 1.2 10 ^3/uL (0-1.3); Monocytes % (auto) 8.8 % (0.0-12.0); Neutrophils # (auto) 12.1 10 ^3/uL (1.6-8.6); Neutrophils % (auto) 88.4 % (37.0-80.0); Platelet Count (auto) 185 10^3/uL (140-450); Red Cell Distribution Width 16.9 % (11.8-14.3); White Blood Cell 13.7 10^3/uL (4.4-10.8)
[2019-11-26 05:02] LABS: Potassium 4.1 mmol/L (3.5-5.1)
[2019-11-26 05:07] LABS: Albumin 1.9 g/dL (3.4-5.0); BUN/Creatinine Ratio 9.1; Bilirubin, Total 0.6 mg/dL (0.2-1.0); Calcium 7.6 mg/dL (8.5-10.1); Total Protein 5.1 g/dL (6.4-8.2)
[2019-11-26] MEDS: MIDODRINE HCL 10 MG TAB PO SCH ×3 (05:54→18:28)
[2019-11-26] MEDS: HEPARIN SODIUM (PORCINE) 5000 UNITS/ML 1ML VIAL SC SCH ×3 (05:54→21:27)
[2019-11-26] MEDS: InsuLIN REG 1unit/0.01ml Soln (100units/ml) SC SCH ×5 (05:55→23:32)
[2019-11-26] MEDS ORDERED: SODIUM CHL 0.9% 1000 ML BAG XX ONE (07:00)
--- NOTE | 2019-11-26 07:30 | NUR ---
END OF SHIFT REPORT GIVEN AND CARE ENDORSED TO JARED MORRISON.
--- NOTE | 2019-11-26 07:45 | NUR ---
OPENING SHIFT NOTE Received report from NOC RNKhushbu. Assumed care of patient. Received patient lying in bed, connected to bedside monitor with alarms in place. Patient is A&Ox4, denies pain and with no s/s of distress noted. Patient to have dialysis today. Patient continues to yell out at staff for needs, but continues to need reinforcement to use call light instead. Patient with two PIVs, L hand #22 and L wrist #20 both patent and intact. Patient is aneuric. Bed in lowest position, rails x3 up and call light within reach. Updated on plan of care. Will continue to monitor.
[2019-11-26] MEDS: Nepro With Carbsteady ButterPecan 8oz Carton PO SCH ×2 (08:00→17:48)
--- NOTE | 2019-11-26 08:29 | NUR ---
DIALYSIS tiltrotor crew chief at bedside to start treatment.
--- NOTE | 2019-11-26 11:20 | NUR ---
MD Dr Pool to see patient.
[2019-11-26] MEDS: ASPirin 81 mg TAB PO SCH (11:44)
[2019-11-26] MEDS: cefTRIAXone 1GM/50ML D5W 50 ML IV SCH (11:44)
--- NOTE | 2019-11-26 11:46 | NUR ---
I [facility].
--- NOTE | 2019-11-26 11:48 | NUR ---
DIALYSIS Treatment complete. SBAR received. 1.5L off. BP 85/43. Midodrine given. Will continue to monitor.
--- NOTE | 2019-11-26 12:25 | NUR ---
I received a call from [facility] Transfer Wkwgga-Ijucspi-tlwqftdd her with additional clinical information as requested-she will present the information to her MD and will give me a call back.
--- NOTE | 2019-11-26 12:45 | NUR ---
I called [facility] Transfer Center and spoke with Ashly, provided her with contact information for Dr. Olsen and the nurse's station-faxed requested clinical documentation.
--- NOTE | 2019-11-26 13:44 | NUR ---
FAMILY T/C from patient's family. Password verified. Updated on patient status and plan of care. All questions addressed at this time.
--- NOTE | 2019-11-26 14:15 | NUR ---
PT at bedside working with patient.
--- NOTE | 2019-11-26 17:01 | NUR ---
I called [facility] ([phone]) and spoke with Deon, placed them on will call (authorization number from Rocío at [facility] is [id number]) pending transfer to higher level of care. Per Rocío at [facility], authorization number for accepting facility is [id number].
[2019-11-26] MEDS: TAMSULOSIN HYDROCHLORIDE 0.4 MG CAP PO SCH (18:28)
--- NOTE | 2019-11-26 19:00 | NUR ---
END OF SHIFT NOTE Patient resting in bed, still with moments of confusion, but easily reoriented. Patient with no s/s of distress noted. Patient pending transfer to [facility] once accepting facility is found. Dr Olsen was on unit earlier and signed all transfer paperwork and placed in front of chart. Patient has refused all meals throughout day. Report to be given to NOC RN.
--- NOTE | 2019-11-26 19:10 | NUR ---
RECEIVED REPORT FROM NURSE COLEMAN TO RESUME CARE OF PATIENT.
--- NOTE | 2019-11-26 19:35 | NUR ---
Opening Shift Note Assumed care of patient, awake and alert. No S/S of distress/SOB on O2 2LNC or pain or discomfort. Instructed on POC and to call for assist PRN, will continue to monitor for changes Q1hr and PRN.
[2019-11-26] MEDS ORDERED: EPOETIN ALFA 10,000 UNIT/1 ML VIAL SC ONE (21:00)
[2019-11-26] MEDS: ATORVASTATIN 20 MG TAB PO SCH (21:26)
--- NOTE | 2019-11-26 21:47 | NUR ---
GI CONSULT DR BOSS CALLED FOR UPDATE. NO NEW ORDERS
--- NOTE | 2019-11-26 22:14 | NUR ---
LUE EDEMA PATIENT IV ACCESS 22G LH AND 20 LFA PATENT AND INTACT FLUSHED WITH NS WITHOUT ANY INFILTRATION NOTED. PATIENT HAD PREVIOUS LEFT AV FISTULA, AND HAS EDEMA TO LUE, ELEVATED LEFT ARM ON PILLOW FOR BETTER CIRCULATION.
[2019-11-27] VITALS: BP 113/36
[2019-11-27] MEDS: metroNIDAZOLE 500MG/100ML 100 ML IV SCH ×2 (01:58→08:54)
[2019-11-27 03:48] LABS: Basophils # (auto) 0 10 ^3/uL (0-0.2); Basophils % (auto) 0.1 % (0.0-2.0); Eosinophils # (auto) 0 10 ^3/uL (0-0.8); Eosinophils % (auto) 0.1 % (0.0-7.0); Hematocrit 26.5 % (41.0-53.0); Hemoglobin 8.5 g/dL (13.5-17.5); Lymphocytes # (auto) 0.4 10 ^3/uL (0.4-5.4); Lymphocytes % (auto) 2.6 % (10.0-50.0); Mean Corpuscular Hemoglobin 27.7 pg (28.0-32.0); Mean Corpuscular Volume 86.6 fL (80.0-100.0); Monocytes # (auto) 1.3 10 ^3/uL (0-1.3); Monocytes % (auto) 8.1 % (0.0-12.0); Neutrophils # (auto) 13.9 10 ^3/uL (1.6-8.6); Neutrophils % (auto) 89.1 % (37.0-80.0); Platelet Count (auto) 193 10^3/uL (140-450); Red Blood Cells 3.07 10^6/uL (4.5-5.90); White Blood Cell 15.6 10^3/uL (4.4-10.8)
[2019-11-27 04:00] VITALS: BP 103/39
[2019-11-27 04:04] LABS: Albumin 1.8 g/dL (3.4-5.0); Calcium 7.7 mg/dL (8.5-10.1); Potassium 3.7 mmol/L (3.5-5.1)
[2019-11-27 04:07] LABS: BUN/Creatinine Ratio 7.9; Bilirubin, Total 0.6 mg/dL (0.2-1.0); Total Protein 4.9 g/dL (6.4-8.2)
--- NOTE | 2019-11-27 04:28 | NUR ---
[facility] CALLED [facility] DR Luis E BOSS NEEDS PHONE CONFERENCE WITH STAFF SURGEON AT [facility]. DR Luis E BOSS TO CALL [facility] [phone]
[2019-11-27] MEDS: InsuLIN REG 1unit/0.01ml Soln (100units/ml) SC SCH ×4 (06:00→23:56)
[2019-11-27] MEDS: ACCU-CHEK COMFORT CURVE STRIP VI SCH ×4 (06:07→23:48)
[2019-11-27] MEDS: MIDODRINE HCL 10 MG TAB PO SCH ×2 (06:19→11:53)
[2019-11-27] MEDS: HEPARIN SODIUM (PORCINE) 5000 UNITS/ML 1ML VIAL SC SCH ×3 (06:20→16:27)
--- NOTE | 2019-11-27 07:10 | NUR ---
Assumed care of pt., report received per TAMIKO Siddiqui. No distress noted, pt. reading sinus tachycardia 1teens on monitor, otherwise VSS, will cont.to monitor for any changes, call stafford in reach, assessment ongoing.
[2019-11-27 07:38] VITALS: BP 107/37
[2019-11-27] MEDS: Nepro With Carbsteady ButterPecan 8oz Carton PO SCH ×2 (08:00→18:00)
[2019-11-27] MEDS: ASPirin 81 mg TAB PO SCH (08:53)
[2019-11-27] MEDS: cefTRIAXone 1GM/50ML D5W 50 ML IV SCH (08:53)
--- NOTE | 2019-11-27 10:11 | NUR ---
I received a call from Jaspreet at the [facility] Transfer Center letting me know that his surgeon is not accepting because patient is considered too high risk for surgery at this time due to recent [place]-they recommend cholecystostomy tube placement and follow up at [facility] as outpatient. I called Dr. Olsen and made him aware-he requested that I reach out to one more facility-I told him I would be reaching out to [facility].
--- NOTE | 2019-11-27 10:26 | NUR ---
I called [facility] Transfer Center and spoke with Pearl, they have no beds available at this time. I called [facility] Transfer Center and spoke with Marcella, she said they are at capacity right now but to check back after 12 noon.
[2019-11-27] MEDS: MORPHINE SULFATE 4 MG/ML SYR/VIAL IV PRN ×2 (11:53→16:29)
[2019-11-27 12:00] VITALS: BP 116/39
--- NOTE | 2019-11-27 12:00 | NUR ---
No distress noted, pt. resting in bed, pain control in effect, will cont.to monitor for any changes, assessment ongoing.
[2019-11-27] MEDS: ACETAMINOPHEN 325 MG TAB PO PRN (12:07)
--- NOTE | 2019-11-27 15:00 | NUR ---
Dr. Walter Mora present to see pt., new orders received, will cont.to monitor for any changes, assessment ongoing.
--- NOTE | 2019-11-27 15:25 | NUR ---
I called [facility] Transfer Center and spoke with Yarelis regarding the transfer request for this patient-she said they are only able to accept STEMI, STROKE or TRAUMA transfers at this time and to check back in the morning regarding bed availability. I called [facility] Transfer Center and spoke with Mukesh, he said they have no beds available at this time. I called [facility] and left message for warehouse supervisor asking about bed availability.
[2019-11-27 16:00] VITALS: BP 105/44
[2019-11-27] MEDS ORDERED: TPN PER PHARMACY 0 ML IV SCH (16:00)
[2019-11-27] MEDS ORDERED: DEXTROSE (50%) 50ML SYRG IV SCH (18:00)
--- NOTE | 2019-11-27 18:30 | NUR ---
Pt. SBAR given to TAMIKO Chong on [facility] and is ready to accept patient, no distress noted, Ana applied psychology professor to transfer pt. on bed /c IV, O2, and monitor in place.
--- NOTE | 2019-11-27 18:30 | NUR ---
RECEIVED REPORT FROM ROSY BURKS RN RE PATIENT STATUS AND FOR CONTINUATION OF CARE
--- NOTE | 2019-11-27 18:40 | NUR ---
RECEIVED FROM KIMMIE VIA BED,PATIENT AWAKE,RESPOND APPROPRIATELY TO QUESTIONS.SISTERX 2 VISITING AT BEDSIDE INSTRUCTED ALLOWED I VISITOR ONLY FOR 15 MINUTES
--- NOTE | 2019-11-27 19:20 | NUR ---
PATIENT C/O NAUSEA NO VOMITING,REPORT GIVEN TO INCOMING NOC SHIFT RN
[2019-11-27] MEDS ORDERED: AMINO ACID INFUSION IN D5W 2,000 ML IV NR (20:00)
[2019-11-27] MEDS: ONDANSETRON HCL 4 MG/2 ML VIAL IV PRN (20:12)
[2019-11-27 22:00] VITALS: BP 126/56
[2019-11-27] MEDS: ATORVASTATIN 20 MG TAB PO SCH (22:01)
[2019-11-28 05:00] VITALS: BP 111/43
[2019-11-28] MEDS: ACCU-CHEK COMFORT CURVE STRIP VI SCH ×3 (05:40→18:57)
[2019-11-28] MEDS: InsuLIN REG 1unit/0.01ml Soln (100units/ml) SC SCH ×3 (05:41→18:00)
[2019-11-28] MEDS ORDERED: SODIUM CHL 0.9% 1000 ML BAG XX ONE (07:00)
--- NOTE | 2019-11-28 07:50 | NUR ---
Opening Shift Note Assumed care of patient, he is drowsy but easily aroused. Respirations are even and non labored on 3L NC. No S/S of distress/SOB or pain. Bed is in the lowest and locked position with side rails up x 2 and call light within reach. Instructed on POC and to call for assist PRN, patient verbalized understanding. Will continue to monitor for changes Q1hr and PRN.
[2019-11-28] MEDS: Nepro With Carbsteady ButterPecan 8oz Carton PO SCH ×2 (08:00→18:00)
--- NOTE | 2019-11-28 08:30 | NUR ---
SPOKE WITH PRIMARY RN MAY REGARDING ORDER FOR PICC LINE PLACEMENT. I LET HER KNOW THAT DUE TO THE PATIENT HAVING AV FISTULAS IN BILATERAL UPPER EXTREMITIES THE PATIENT IS NOT A GOOD CANDIDATE FOR A PICC LINE. INSTRUCTED PRIMARY RN TO SPEAK TO DR. YARBROUGH AND SEE WHAT HIS RECOMMENDATIONS WILL BE AT THIS TIME.
[2019-11-28 09:00] VITALS: BP 148/72
[2019-11-28] MEDS: cefTRIAXone 1GM/50ML D5W 50 ML IV SCH (09:00)
--- NOTE | 2019-11-28 09:07 | NUR ---
I called [facility] and spoke with Constantino, she said they are at capacity and the only transfers they can accept are STEMI's, STROKES or TRAUMAS. I called [facility] and spoke with Mukesh, he said they have no beds available at this time. I call [facility] and spoke with commercial housekeeper Mee, she said they have no beds available and have several patients in their ER waiting for a bed. I called [facility] and left message for commercial housekeeper asking about bed availability.
--- NOTE | 2019-11-28 09:14 | NUR ---
Call from Fiscal Accounting Clerk For procedure with Dr. Brooks. Notified pipelines laborer that consents had not been obtained for procedure today. Will call
--- NOTE | 2019-11-28 09:30 | NUR ---
Placed call to Dr. Olsen In regards to patient plan for draining of the gallbladder today.
--- NOTE | 2019-11-28 09:35 | NUR ---
Call from Dr. Olsen Instructed to clarify procedure with Dr. Mora
[2019-11-28] MEDS: metroNIDAZOLE 500MG/100ML 100 ML IV SCH ×3 (10:00→18:00)
[2019-11-28] MEDS: PANTOPRAZOLE 40 MG TAB PO SCH (10:00)
[2019-11-28] MEDS: ASPirin 81 mg TAB PO SCH (10:00)
--- NOTE | 2019-11-28 10:18 | NUR ---
Paged Dr. Mora For POC
[2019-11-28 10:24] LABS: Basophils # (auto) 0 10 ^3/uL (0-0.2); Basophils % (auto) 0.3 % (0.0-2.0); Eosinophils # (auto) 0.1 10 ^3/uL (0-0.8); Eosinophils % (auto) 0.9 % (0.0-7.0); Hematocrit 27.2 % (41.0-53.0); Hemoglobin 8.7 g/dL (13.5-17.5); Lymphocytes # (auto) 0.5 10 ^3/uL (0.4-5.4); Lymphocytes % (auto) 3.9 % (10.0-50.0); Mean Corpuscular Hgb Conc. 31.9 g/dL (32.0-36.0); Mean Corpuscular Volume 87.8 fL (80.0-100.0); Monocytes % (auto) 8.1 % (0.0-12.0); Neutrophils # (auto) 10.5 10 ^3/uL (1.6-8.6); Neutrophils % (auto) 86.8 % (37.0-80.0); Platelet Count (auto) 232 10^3/uL (140-450); Red Cell Distribution Width 17.8 % (11.8-14.3); White Blood Cell 12.1 10^3/uL (4.4-10.8)
--- NOTE | 2019-11-28 10:25 | NUR ---
Call returned from Dr. Luis E Mora Discussed POC for patient. will call family to explain procedure and obtain verbal consent for US aspiration of the gallbladder.
[2019-11-28 10:44] LABS: Potassium 3.6 mmol/L (3.5-5.1)
[2019-11-28 10:53] LABS: Albumin 1.9 g/dL (3.4-5.0); BUN/Creatinine Ratio 8.6; Bilirubin, Total 0.4 mg/dL (0.2-1.0); Calcium 7.9 mg/dL (8.5-10.1); Magnesium 2.5 mg/dL (1.6-2.6); Phosphorus 4.5 mg/dL (2.5-4.90); Pre Albumin 3.3 mg/dL (20.0-40.0); Total Protein 5.2 g/dL (6.4-8.2)
--- NOTE | 2019-11-28 11:55 | NUR ---
PICC LINE CONSULT SPOKE WITH DR. ZALDIVAR REGARDING PICC LINE PLACEMENT. HE STATES PATIENT CAN NOT HAVE A PICC LINE PLACED BUT CAN HAVE A MIDLINE. I EXPLAINED THAT DR. YARBROUGH PLACED THE PICC CONSULT FOR TPN AND WE CAN NOT RUN TPN THROUGH THE MIDLINE. SPOKE WITH SHERIN THE PRIMARY RN AND NOTIFIED HER OF MY CONVERSATION WITH DR. ZALDIVAR. SHE STATED SHE HAS A PAGE OUT TO DR. YARBROUGH AND WILL PAGE ME WITH HIS POC.
[2019-11-28] MEDS: MIDODRINE HCL 10 MG TAB PO SCH ×2 (12:00→17:30)
[2019-11-28 12:49] VITALS: BP 84/50
--- NOTE | 2019-11-28 13:05 | NUR ---
Patient taken to screedman/laborer
[2019-11-28 13:10] LABS: INR 1.63 (0.9-1.15); Partial Thromboplastin Time 38.5 sec (23.0-31.2)
[2019-11-28] MEDS ORDERED: LIDOCAINE 2%HCL (LOCAL ANESTH.) INJ 20ML MDV ONE (13:28)
[2019-11-28] MEDS ORDERED: fentaNYL CITRATE 100 MCG/2 ML VL ONE (13:49)
[2019-11-28] MEDS ORDERED: MIDAZOLAM HCL 1MG/1ML-2 ML VIAL ONE (13:49)
--- NOTE | 2019-11-28 14:24 | NUR ---
assessment Patient is a 54 year old male who is alert and oriented. Patients cognitive abilities are intact. Prior to admission patient lived home with family and functioned with assistance. Per patient he will return home to his prior living arrangements post discharge and family will transport him home. Patient informed me he needs assistance at home for cooking, cleaning, and errands. Patient informed me he has a rollator for home use. Patient is on dialysis with [facility]. Patient informed me he came to ER due to a fall at home and abdominal pain. Patient was admitted. Patient may benefit from home health for safety and med management on discharge. Patient also has a diagnosis for sepsis. Patient may also need home IV ABX. I informed patient he has a right to speak to a social worker clinical regarding all care. I informed patient he has a right to participate in any and all discharge planning. Patient does not have a POA and advanced directive. I have offered patient information on POA and advanced directives. I informed the patient the advantages and benefits of having an Advanced Directive. Patient verbalized understanding and agreed to discharge plan. Addendum: 11/28/19 at 1431 by Rosanna LAM Amended: Links added.
--- NOTE | 2019-11-28 14:37 | NUR ---
Nutrition Followup Note Wt 54.0 kg Pt was sleeping with no family at bedside at time of rounds. Pt is with a Renal Standard diet with poor po intake aeb pt with 0 intake recorded since 11/20. Pt is now active for PN support, not yet started. Est Energy needs BW 55 [id number] kcals (30-33 kcal/kgBW), Est Protein needs: 66-77 gms/day (1.2-1.4 gm/kgBW r/t HD). Will continue to monitor and reassess prn. Labs: BUN 32H, Creat 4.03H, Alb 1.8L, Gluc 128 H BM: Pt with 1 BM on 11/26 per RN note Skin: BS 16 mod risk, full details in career development specialist note PES: Altered nutrition related lab values r.t current chronic medical condition aeb severe hypoalb elev RFT Comments Will continue to monitor PO status, skin status, pertinent labs and weight trends. Will f/u in 2-3 days. 1) advance diet as medically feasible 2) refer to CDE on DC 3) consider Prostat 1 packet bid 4) continue current plan of care
--- NOTE | 2019-11-28 14:45 | NUR ---
Pt. received in Chemistry Account Manager Post-Op awake and oriented to person, place and event. Respirations even and unlabored. RIGHT side abdomen dressing is CDI with drainage bag intact; site benign. Pt. instructed re: procedure outcome and plan of care; verbalized understanding and is compliant. Currently denies discomfort, NAD noted. SBAR report given to TAMIKO Gill by Ele Soto RN.
--- NOTE | 2019-11-28 14:55 | NUR ---
Pt. unchanged, pt. stable for transfer back to room. To room via bed with assist by Fara Tran RN. Pt. endorsed to TAMIKO Gill.
[2019-11-28 16:35] VITALS: BP 87/43
--- NOTE | 2019-11-28 16:49 | NUR ---
IV INSERTION IV insertion IV access obtained, via clean sterile technique by inserting 20 gauge catheter at LEFT AC after ONE attempt. IV secured properly. No trauma to site. Patient tolerated well. UNABLE TO PLACE MIDLINE ANYWHERE NEAR THE OLD AV FISTULA. PRIMARY RN SHERIN BETHEA.
[2019-11-28] MEDS: TAMSULOSIN HYDROCHLORIDE 0.4 MG CAP PO SCH ×2 (17:30→18:00)
[2019-11-28] MEDS ORDERED: PPN PER PHARMACY IV NR ×5 (20:00)
[2019-11-28] MEDS ORDERED: EPOETIN ALFA 10,000 UNIT/1 ML VIAL SC ONE (21:00)
[2019-11-28] MEDS: ATORVASTATIN 20 MG TAB PO SCH (21:57)
[2019-11-28 22:00] VITALS: BP 85/46
[2019-11-29] MEDS: ACCU-CHEK COMFORT CURVE STRIP VI SCH ×4 (00:08→18:00)
[2019-11-29 00:35] VITALS: BP 95/43
[2019-11-29] MEDS: metroNIDAZOLE 500MG/100ML 100 ML IV SCH ×3 (01:56→18:00)
[2019-11-29 05:00] VITALS: BP 96/52
[2019-11-29] MEDS: InsuLIN REG 1unit/0.01ml Soln (100units/ml) SC SCH ×4 (05:30→18:00)
[2019-11-29] MEDS: MIDODRINE HCL 10 MG TAB PO SCH ×3 (05:35→18:00)
--- NOTE | 2019-11-29 07:35 | NUR ---
CALL RECEIVED FROM [facility] [facility] STATED THAT THEY HAVE A BED AVAILABLE TO TRANSFER PATIENT. DIRECT CONTACT [phone]
--- NOTE | 2019-11-29 08:39 | NUR ---
SPOKE TO DR YARBROUGH ABOUT TRANSFER DR YARBROUGH STATED TO GO THROUGH WITH THE TRANSFER TO [facility]. WILL CALL PAINT PREPARER TO UPDATE.
--- NOTE | 2019-11-29 08:40 | NUR ---
SPOKE TO CAROLYN HALL GAVE INFORMATION FOR PATIENT TRANSFER TO [facility].
[2019-11-29 08:42] VITALS: BP 89/49
[2019-11-29] MEDS: cefTRIAXone 1GM/50ML D5W 50 ML IV SCH (09:17)
[2019-11-29] MEDS: Nepro With Carbsteady ButterPecan 8oz Carton PO SCH ×2 (09:19→18:00)
--- NOTE | 2019-11-29 10:02 | NUR ---
I called [facility] [phone] regarding bed availability and was told that they were under the impression that patient is ready to be transferred to SNF and does not require higher level of care. I let her know that per Dr. Olsen, patient does still require inpatient transfer-she is requesting that I fax today's MD progress notes stating that patient still requires inpatient transfer. Per nurse May-Dr. Olsen will place note in.
[2019-11-29] MEDS ORDERED: SODIUM CHL 0.9% 1000 ML BAG XX ONE ×2 (10:15)
[2019-11-29 11:15] LABS: Basophils # (auto) 0 10 ^3/uL (0-0.2); Eosinophils # (auto) 0.1 10 ^3/uL (0-0.8); Hemoglobin 8.4 g/dL (13.5-17.5); Lymphocytes # (auto) 0.3 10 ^3/uL (0.4-5.4); Monocytes # (auto) 0.4 10 ^3/uL (0-1.3); Monocytes % (auto) 4.6 % (0.0-12.0); Neutrophils # (auto) 7.2 10 ^3/uL (1.6-8.6); Neutrophils % (auto) 89.5 % (37.0-80.0)
[2019-11-29 11:17] LABS: Basophils % (auto) 0.4 % (0.0-2.0); Eosinophils % (auto) 1.4 % (0.0-7.0); Hematocrit 26.4 % (41.0-53.0); Lymphocytes % (auto) 4.1 % (10.0-50.0); Mean Corpuscular Hemoglobin 27.8 pg (28.0-32.0); Mean Corpuscular Hgb Conc. 31.8 g/dL (32.0-36.0); Mean Corpuscular Volume 87.2 fL (80.0-100.0); Platelet Count (auto) 225 10^3/uL (140-450); Red Blood Cells 3.02 10^6/uL (4.5-5.90); Red Cell Distribution Width 17.4 % (11.8-14.3)
--- NOTE | 2019-11-29 11:26 | NUR ---
Hold PT, pt is currently receiving hemodialysis.
[2019-11-29 11:31] LABS: Albumin 1.7 g/dL (3.4-5.0); Calcium 7.6 mg/dL (8.5-10.1); Magnesium 2.3 mg/dL (1.6-2.6); Potassium 3.6 mmol/L (3.5-5.1)
[2019-11-29 11:34] LABS: BUN/Creatinine Ratio 9.4; Bilirubin, Total 0.4 mg/dL (0.2-1.0); Phosphorus 3.4 mg/dL (2.5-4.90)
[2019-11-29 13:00] VITALS: BP 93/40
[2019-11-29] MEDS: CALCITRIOL 0.25 MCG CAP PO SCH (13:38)
[2019-11-29] MEDS: PANTOPRAZOLE 40 MG TAB PO SCH (13:38)
[2019-11-29] MEDS: ASPirin 81 mg TAB PO SCH (13:38)
--- NOTE | 2019-11-29 14:36 | NUR ---
Faxed today's MD progress notes to [facility]. I also spoke with Dr. Olsen who is still wanting patient transferred to higher level of care if there is a facility that will accept him.
--- NOTE | 2019-11-29 14:43 | NUR ---
I spoke with [facility] Technical Support Intern Rocío Phillips about the request for higher level of care. I let her know that SNF order was placed late yesterday and that today Dr. Olsen placed order to discharge to acute care facility for higher level of care. I asked Rocío if I could reach out to [facility] (I told her that [facility] had stated patient too high risk for them right now to consider surgery). Per Rocío she will reach out to her medical sociologist regarding [facility] and she will give me a call back.
--- NOTE | 2019-11-29 15:02 | NUR ---
I called [facility] Transfer Center [phone] and spoke with Nyla-she said they have no beds available at this time-I let her know that I had faxed today's MD progress notes per their request stating patient still needs transfer to higher level of care. I called [facility] and spoke with Foster, patient remains on will-call.
--- NOTE | 2019-11-29 15:12 | NUR ---
I received a call from Rocío Phillips at [place] letting me know that her biomedical engineer will not authorize patient to be transferred to an out of area hospital-I can not reach out to [facility] at this time.
--- NOTE | 2019-11-29 16:30 | NUR ---
I received a call from [facility] Funeral Workers Rocío Phillips letting me know that her pediatric medical assistant Dr. Caban is retracting the authorization to transfer to higher level of care at this time-stating that since patient had drainage tube placed-can go to SNF until stable enough to undergo gallbladder surgery. I asked for her pediatric medical assistant's contact information to give to Dr. Olsen-she stated she can not do that, what she can do is have her pediatric medical assistant Dr. Caban call Dr. Olsen. I did call Dr. Olsen and leave a message explaining that they are retracting the authorization to transfer to higher level of care and that the pediatric medical assistant from [facility] would be giving him a call. I also made nurse Lindsey aware of the update.
[2019-11-29 16:37] VITALS: BP 115/51
--- NOTE | 2019-11-29 18:15 | NUR ---
Output from drain Patient had 80ML of green drainage from gallbladder tube.
--- NOTE | 2019-11-29 19:30 | NUR ---
ASSUMED CARE, PT. AWAKE, WEAK IN APPEARANCE, REPOSITIONED PT. NO C/O PAIN, NO SOB.
[2019-11-29] MEDS ORDERED: PPN PER PHARMACY IV NR ×9 (20:00)
[2019-11-29] MEDS ORDERED: EPOETIN ALFA 10,000 UNIT/1 ML VIAL SC ONE (21:00)
[2019-11-29] MEDS: ATORVASTATIN 20 MG TAB PO SCH (21:18)
[2019-11-29 22:00] VITALS: BP 93/49
[2019-11-30] MEDS: ACCU-CHEK COMFORT CURVE STRIP VI SCH ×4 (00:06→18:08)
[2019-11-30] MEDS: metroNIDAZOLE 500MG/100ML 100 ML IV SCH ×3 (01:30→17:34)
[2019-11-30 05:00] VITALS: BP 105/60
[2019-11-30] MEDS: MIDODRINE HCL 10 MG TAB PO SCH ×3 (05:34→17:34)
[2019-11-30] MEDS: InsuLIN REG 1unit/0.01ml Soln (100units/ml) SC SCH ×4 (05:35→18:00)
[2019-11-30 09:00] VITALS: BP 113/66
[2019-11-30] MEDS: Nepro With Carbsteady ButterPecan 8oz Carton PO SCH ×2 (09:26→17:34)
[2019-11-30] MEDS: CALCITRIOL 0.25 MCG CAP PO SCH (09:29)
[2019-11-30] MEDS: PANTOPRAZOLE 40 MG TAB PO SCH (09:29)
[2019-11-30] MEDS: ASPirin 81 mg TAB PO SCH (09:29)
[2019-11-30] MEDS: cefTRIAXone 1GM/50ML D5W 50 ML IV SCH (09:29)
--- NOTE | 2019-11-30 10:17 | NUR ---
PER DR YARBROUGH PATIENT TO DC TO SNF. VENDOR ANALYST MADE AWARE.
--- NOTE | 2019-11-30 11:39 | NUR ---
Patient will not allow accu check, blood draws and will not take medication at this time.
[2019-11-30 12:43] LABS: Albumin 1.8 g/dL (3.4-5.0); Calcium 7.9 mg/dL (8.5-10.1); Magnesium 2.4 mg/dL (1.6-2.6); Potassium 4.4 mmol/L (3.5-5.1)
[2019-11-30 12:47] LABS: BUN/Creatinine Ratio 8.8; Bilirubin, Total 0.4 mg/dL (0.2-1.0); Phosphorus 2.9 mg/dL (2.5-4.90); Total Protein 5.4 g/dL (6.4-8.2)
[2019-11-30 13:00] VITALS: BP_SYST 115; BP_SYST 89; BP_DIAS 51; BP_DIAS 54
--- NOTE | 2019-11-30 13:24 | NUR ---
I called [facility] discharge nurse Jennifer and left message asking for authorization for [facility].
--- NOTE | 2019-11-30 13:50 | NUR ---
D/C Planning Per social service consult for SNF placement. Faxed clinical information to [facility], [facility] and [facility]. Per Elisa with [facility] patient has been accepted to room 513 accepting Md, Dr. Luong. Per Elisa patient can be accepted after 6pm. Faxed clinical information to [facility] requesting authorization for [facility]. Pending authorization, ISABEL Caban will follow up with health plan. Faxed Transportation form request to [facility] requesting for a 7:30pm flower picker time via gurney with oxygen. Transportation will be with [employer] . Informed TAMIKO Mitchell.
--- NOTE | 2019-11-30 14:08 | NUR ---
I called [facility] and spoke with Therapeutic Massage Technician Rocío Phillips ([phone]) to request authorization for [facility] as we are unable to get a hold of Jennifer. Per Rocío Luna is off today-Dian is covering [phone]. I called [facility] discharge nurse Dian and left message asking for authorization for [facility].
--- NOTE | 2019-11-30 14:41 | NUR ---
I spoke with [facility] discharge nurse Dian, faxed her requested PT notes.
[2019-11-30 14:53] VITALS: BP 99/59
--- NOTE | 2019-11-30 14:55 | NUR ---
I called [facility] and spoke with Dora, she said they arrange transportation to and from dialysis on their end. I called [facility] discharge nurse Dian and left her a message letting her know this, also asked for authorization for [facility].
--- NOTE | 2019-11-30 15:45 | NUR ---
I called [facility] and spoke with Kelley-let her know that [facility] authorization number for admit is [id number]-urh will relay this information to Dora.
[2019-11-30 16:42] VITALS: BP 91/52
--- NOTE | 2019-11-30 17:00 | NUR ---
DISCUSSED WITH LUDIN (PATIENTS EMERGENCY CONTACT) ABOUT PATIENTS TRANSFER TO SNF, SHE VERBALIZED UNDERSTANDING AND WAS IN AGREEMENT TO TRANSFER.
--- NOTE | 2019-11-30 17:34 | NUR ---
GAVE REPORT TO [facility].
[2019-11-30] MEDS ORDERED: PPN PER PHARMACY IV NR ×17 (20:00)
--- NOTE | 2019-11-30 20:00 | NUR ---
Discharge instructions given as ordered. Encourage to follow up with PMD as instructed. All questions and concerns addressed. Patient verbalized understanding. Medication reconciliation form completed and copy given to patient. Home medications held in Pharmacy returned to patient, and needed vaccines given. IV removed with catheter intact, pressure dressing applied. Telemetry unit returned to ICU. Patient taken to vehicle via stretcher with all personal belongings, accompanied by transport team. No distress noted at time of departure.
== END 2019-11-30 20:10 ==
LOC: ER 19:48 → TELE 19:49 → TELE-CENTR 11-20 17:19 → DOU IN ICU 11-22 02:35 → TELE-WESTW 11-27 18:38
PROVIDERS: ADMIT Nurse Practitioner; ATTEND Internal Medicine
PROC: 5A1D70Z Performance of Urinary Filtration, Intermittent, Less than 6 Hours Per Day (ICD-10-PCS; 2019-11-21)
PROC: 5A1D70Z Performance of Urinary Filtration, Intermittent, Less than 6 Hours Per Day (ICD-10-PCS; 2019-11-23)
PROC: 5A1D70Z Performance of Urinary Filtration, Intermittent, Less than 6 Hours Per Day (ICD-10-PCS; 2019-11-26)
PROC: BF42ZZZ Ultrasonography of Gallbladder (ICD-10-PCS; principal; 2019-11-28)
PROC: 0F9430Z Drainage of Gallbladder with Drainage Device, Percutaneous Approach (ICD-10-PCS; 2019-11-28)
PROC: BF121ZZ Fluoroscopy of Gallbladder using Low Osmolar Contrast (ICD-10-PCS; 2019-11-28)
PROC: 5A1D70Z Performance of Urinary Filtration, Intermittent, Less than 6 Hours Per Day (ICD-10-PCS; 2019-11-29)
DX: K80.00 Calculus of gallbladder with acute cholecystitis without obstruction (principal); I21.A1 Myocardial infarction type 2; E44.0 Moderate protein-calorie malnutrition; I13.2 Hypertensive heart and chronic kidney disease with heart failure and with stage 5 chronic kidney disease, or end stage renal disease; I50.43 Acute on chronic combined systolic (congestive) and diastolic (congestive) heart failure; A41.9 Sepsis, unspecified organism; I95.9 Hypotension, unspecified; N18.6 End stage renal disease; E11.21 Type 2 diabetes mellitus with diabetic nephropathy; E11.22 Type 2 diabetes mellitus with diabetic chronic kidney disease; Z20.828 Contact with and (suspected) exposure to other viral communicable diseases; K82.A1 Gangrene of gallbladder in cholecystitis; S20.211A Contusion of right front wall of thorax, initial encounter; M54.5 Low back pain; W19.XXXA Unspecified fall, initial encounter; E78.5 Hyperlipidemia, unspecified; I25.10 Atherosclerotic heart disease of native coronary artery without angina pectoris; D63.8 Anemia in other chronic diseases classified elsewhere; H54.8 Legal blindness, as defined in USA; E21.3 Hyperparathyroidism, unspecified; M51.37 Other intervertebral disc degeneration, lumbosacral region; Z99.2 Dependence on renal dialysis; Y93.9 Activity, unspecified; Y92.9 Unspecified place or not applicable; Y99.9 Unspecified external cause status; Z68.25 Body mass index [BMI] 25.0-25.9, adult; Z86.73 Personal history of transient ischemic attack (TIA), and cerebral infarction without residual deficits; I25.2 Old myocardial infarction; Z90.49 Acquired absence of other specified parts of digestive tract; Z83.3 Family history of diabetes mellitus; Z95.1 Presence of aortocoronary bypass graft
CPT/HCPCS: 36415; 71045; 71250; 72131; 74176; 76705; 76942; 78226; 78582; 80048; 80053; 82040; 82150; 82306; 82728; 82962; 83036; 83605; 83690; 83735; 83880; 83970; 84100; 84478; 84484; 85025; 85379; 85610; 85730; 86141; 87040; 87077; 87186; 87205; 87426; 90935; 93306; 93970; 97110; 97530; 99152; C1729; C9113; G0378; J0696; J0885; J1642; J1815; J2250; J2405; J3490; J7060

== ENCOUNTER 2020-04-04 07:18 | Inpatient (IN) | payer MEDICAID ==
[~2020-04-04] VITALS: Ht 154.9 cm; Wt 51.3 kg
[2020-04-04] MEDS ORDERED: DEXTROSE 10% 1,000 ML IV ONE (07:45)
[2020-04-04] MEDS ORDERED: SODIUM CHLORIDE 0.9% 1,000 ML IV ONE (08:30)
[2020-04-04] MEDS ORDERED: PIPERACILLIN-TAZOB 3.375GM 100 ML IV ONE (08:30)
[2020-04-04 08:40] LABS: Basophils # (auto) 0 10 ^3/uL (0-0.2); Eosinophils # (auto) 0 10 ^3/uL (0-0.8); Eosinophils % (auto) 0.2 % (0.0-7.0); Hemoglobin 8.1 g/dL (13.5-17.5); Lymphocytes # (auto) 0.3 10 ^3/uL (0.4-5.4); Monocytes # (auto) 0.2 10 ^3/uL (0-1.3)
[2020-04-04 08:42] LABS: Basophils % (auto) 0.4 % (0.0-2.0); Hematocrit 25.2 % (41.0-53.0); Mean Corpuscular Hemoglobin 29.7 pg (28.0-32.0); Mean Corpuscular Hgb Conc. 32.3 g/dL (32.0-36.0); Mean Corpuscular Volume 91.9 fL (80.0-100.0); Monocytes % (auto) 3.3 % (0.0-12.0); Neutrophils # (auto) 5.8 10 ^3/uL (1.6-8.6); Neutrophils % (auto) 91.1 % (37.0-80.0); Platelet Count (auto) 75 10^3/uL (140-450); Red Blood Cells 2.75 10^6/uL (4.5-5.90); White Blood Cell 6.4 10^3/uL (4.4-10.8)
[2020-04-04 08:45] LABS: Red Cell Distribution Width 20.7 % (11.8-14.3)
[2020-04-04 08:57] LABS: INR 1.21 (0.9-1.15); Partial Thromboplastin Time 35.7 sec (23.0-31.2)
[2020-04-04 09:00] LABS: Albumin 1.4 g/dL (3.4-5.0); BUN/Creatinine Ratio 11.6; Calcium 7.5 mg/dL (8.5-10.1); Potassium 3.2 mmol/L (3.5-5.1)
[2020-04-04 09:09] LABS: Bilirubin, Total 0.4 mg/dL (0.2-1.0); Total Protein 4.9 g/dL (6.4-8.2)
[2020-04-04] MEDS ORDERED: FUROSEMIDE 40 MG/4 ML VIAL IV ONE (10:00)
[2020-04-04] MEDS ORDERED: NOREPINEPHRINE 8 MG/250ML KIT 250 ML IV SCH ×2 (11:15)
[2020-04-04] MEDS: POTASSIUM CHL 20MEQ/100ML 100 ML IV SCH ×2 (12:15→15:30)
[2020-04-04] MEDS ORDERED: SODIUM CHLORIDE 0.9% 500 ML IV ONE (12:30)
[2020-04-04] MEDS ORDERED: MORPHINE SULF INJ 2 MG/ML SYRINGE 1ML IV PRN (12:30)
[2020-04-04] MEDS ORDERED: levoFLOXacin 500MG 100 ML IV ONE (12:30)
[2020-04-04] MEDS ORDERED: NITROGLYCERIN 0.4 MG SL TAB SL PRN (12:30)
[2020-04-04] MEDS: ATORVASTATIN 20 MG TAB PO SCH (22:00)
[2020-04-05] VITALS (54 sets, daily range): BP systolic 77–162; BP diastolic 17–108
[2020-04-05] MEDS ORDERED: HYDROmorphone HCL 2 MG/ML VL IV ONE (05:00)
[2020-04-05 07:43] LABS: Albumin 1.7 g/dL (3.4-5.0); Calcium 8.1 mg/dL (8.5-10.1)
[2020-04-05 07:46] LABS: BUN/Creatinine Ratio 11.2
[2020-04-05 07:48] LABS: Bilirubin, Total 0.5 mg/dL (0.2-1.0); Total Protein 5.4 g/dL (6.4-8.2)
[2020-04-05] MEDS: ASPirin 81 mg TAB PO SCH (10:07)
[2020-04-05] MEDS ORDERED: LEVOTHYROXINE SODIUM 25 MCG TAB PO ONE (11:30)
[2020-04-05] MEDS ORDERED: SODIUM CHLORIDE 0.9% 1,000 ML IV ONE ×2 (12:00→15:15)
[2020-04-05] MEDS: InsuLIN REG 1unit/0.01ml Soln (100units/ml) SC SCH ×2 (12:00→17:26)
[2020-04-05] MEDS ORDERED: DEXTROSE (50%) 50ML SYRG IV PRN (12:00)
[2020-04-05] MEDS: ACCU-CHEK COMFORT CURVE STRIP VI SCH ×2 (12:24→17:26)
[2020-04-05] MEDS: NOREPINEPHRINE BITARTRATE 32 MG in SODIUM CHL 0.9% 218 ML IV SCH (12:52)
[2020-04-05] MEDS: levoFLOXacin 250MG 50 ML IV SCH (17:26)
[2020-04-05] MEDS: ATORVASTATIN 20 MG TAB PO SCH (22:22)
[2020-04-06] VITALS (42 sets, daily range): BP systolic 80–191; BP diastolic 26–80
[2020-04-06] MEDS: ACCU-CHEK COMFORT CURVE STRIP VI SCH ×4 (06:00→18:58)
[2020-04-06] MEDS: InsuLIN REG 1unit/0.01ml Soln (100units/ml) SC SCH ×4 (06:00→18:00)
[2020-04-06] MEDS: LEVOTHYROXINE SODIUM 25 MCG TAB PO SCH (06:43)
[2020-04-06 07:16] LABS: Potassium 3.8 mmol/L (3.5-5.1)
[2020-04-06 07:23] LABS: Albumin 1.6 g/dL (3.4-5.0); BUN/Creatinine Ratio 11.9; Bilirubin, Direct 0.2 mg/dL (0-0.2); Bilirubin, Total 0.5 mg/dL (0.2-1.0); Magnesium 2.1 mg/dL (1.6-2.6); Total Protein 5.1 g/dL (6.4-8.2)
[2020-04-06 07:33] LABS: Basophils # (auto) 0 10 ^3/uL (0-0.2); Basophils % (auto) 0.5 % (0.0-2.0); Eosinophils # (auto) 0 10 ^3/uL (0-0.8); Eosinophils % (auto) 0.3 % (0.0-7.0); Hematocrit 22.1 % (41.0-53.0); Hemoglobin 7.4 g/dL (13.5-17.5); Lymphocytes # (auto) 0.9 10 ^3/uL (0.4-5.4); Lymphocytes % (auto) 11.4 % (10.0-50.0); Mean Corpuscular Hemoglobin 30.6 pg (28.0-32.0); Mean Corpuscular Hgb Conc. 33.4 g/dL (32.0-36.0); Mean Corpuscular Volume 91.4 fL (80.0-100.0); Monocytes # (auto) 0.5 10 ^3/uL (0-1.3); Monocytes % (auto) 6.6 % (0.0-12.0); Neutrophils # (auto) 6.7 10 ^3/uL (1.6-8.6); Neutrophils % (auto) 81.2 % (37.0-80.0); Nucleated Red Blood Cells % 0.1 %; Platelet Count (auto) 133 10^3/uL (140-450); Red Blood Cells 2.42 10^6/uL (4.5-5.90); Red Cell Distribution Width 20.3 % (11.8-14.3); White Blood Cell 8.2 10^3/uL (4.4-10.8)
[2020-04-06] MEDS: SODIUM CHLORIDE 0.9% 1,000 ML IV SCH ×3 (07:50→15:30)
[2020-04-06] MEDS: levoFLOXacin 250MG 50 ML IV SCH (09:38)
[2020-04-06] MEDS: ASPirin 81 mg TAB PO SCH (09:38)
[2020-04-06] MEDS: NOREPINEPHRINE BITARTRATE 32 MG in SODIUM CHL 0.9% 218 ML IV SCH (11:30)
[2020-04-06] MEDS ORDERED: levoFLOXacin 250MG 50 ML IV SCH (12:30)
[2020-04-06] MEDS: ATORVASTATIN 20 MG TAB PO SCH (22:20)
[2020-04-07] MEDS: ACCU-CHEK COMFORT CURVE STRIP VI SCH ×4 (00:24→18:00)
[2020-04-07 05:00] VITALS: BP 129/65
[2020-04-07] MEDS: InsuLIN REG 1unit/0.01ml Soln (100units/ml) SC SCH ×4 (06:00→18:00)
[2020-04-07] MEDS: LEVOTHYROXINE SODIUM 25 MCG TAB PO SCH (06:22)
[2020-04-07 06:31] LABS: Basophils # (auto) 0 10 ^3/uL (0-0.2); Eosinophils # (auto) 0 10 ^3/uL (0-0.8); Lymphocytes # (auto) 0.6 10 ^3/uL (0.4-5.4); Mean Corpuscular Hgb Conc. 33.1 g/dL (32.0-36.0); Mean Corpuscular Volume 91.1 fL (80.0-100.0); Monocytes # (auto) 0.4 10 ^3/uL (0-1.3); Platelet Count (auto) 106 10^3/uL (140-450); Red Blood Cells 2.27 10^6/uL (4.5-5.90)
[2020-04-07 06:35] LABS: Basophils % (auto) 0.5 % (0.0-2.0); Eosinophils % (auto) 0.6 % (0.0-7.0); Hematocrit 20.7 % (41.0-53.0); Lymphocytes % (auto) 8.8 % (10.0-50.0); Mean Corpuscular Hemoglobin 30.1 pg (28.0-32.0); Monocytes % (auto) 5.3 % (0.0-12.0); Neutrophils % (auto) 84.8 % (37.0-80.0); White Blood Cell 7.1 10^3/uL (4.4-10.8)
[2020-04-07 06:50] LABS: Calcium 7.8 mg/dL (8.5-10.1); Potassium 4.1 mmol/L (3.5-5.1)
[2020-04-07 06:53] LABS: BUN/Creatinine Ratio 12.2
[2020-04-07 07:00] LABS: Hemoglobin 6.8 g/dL (13.5-17.5); Red Cell Distribution Width 21.2 % (11.8-14.3)
[2020-04-07] MEDS ORDERED: SODIUM CHL 0.9% 1000 ML BAG XX ONE (07:00)
[2020-04-07 09:00] VITALS: BP 101/54
[2020-04-07] MEDS: ASPirin 81 mg TAB PO SCH (09:56)
[2020-04-07] MEDS: levoFLOXacin 250MG 50 ML IV SCH (10:00)
[2020-04-07] MEDS: SODIUM CHLORIDE 0.9% 1,000 ML IV SCH ×2 (10:30→21:02)
[2020-04-07 10:54] LABS: Free T4 (Free Thyroxine) 0.65 ng/dL (0.89-1.76); T3 Total 0.39 ng/mL (0.60-1.81)
[2020-04-07 12:35] VITALS: BP_SYST 117; BP_SYST 97; BP_DIAS 60; BP_DIAS 72
[2020-04-07 17:00] VITALS: BP 100/59
[2020-04-07 18:40] VITALS: BP 104/58
[2020-04-07] MEDS ORDERED: EPOETIN ALFA 10,000 UNIT/1 ML VIAL SC ONE (21:00)
[2020-04-07] MEDS: ATORVASTATIN 20 MG TAB PO SCH (21:02)
[2020-04-07 22:00] VITALS: BP 103/71
[2020-04-08 05:00] VITALS: BP 110/88
[2020-04-08] MEDS: InsuLIN REG 1unit/0.01ml Soln (100units/ml) SC SCH ×4 (06:00→18:00)
[2020-04-08 06:01] LABS: Basophils # (auto) 0 10 ^3/uL (0-0.2); Eosinophils # (auto) 0.1 10 ^3/uL (0-0.8); Platelet Count (auto) 102 10^3/uL (140-450); White Blood Cell 4.6 10^3/uL (4.4-10.8)
[2020-04-08 06:03] LABS: Eosinophils % (auto) 2.8 % (0.0-7.0); Hematocrit 21.6 % (41.0-53.0); Hemoglobin 7.2 g/dL (13.5-17.5); Lymphocytes # (auto) 0.7 10 ^3/uL (0.4-5.4); Lymphocytes % (auto) 16.3 % (10.0-50.0); Mean Corpuscular Hemoglobin 30.4 pg (28.0-32.0); Mean Corpuscular Hgb Conc. 33.5 g/dL (32.0-36.0); Mean Corpuscular Volume 90.8 fL (80.0-100.0); Monocytes # (auto) 0.4 10 ^3/uL (0-1.3); Monocytes % (auto) 9.3 % (0.0-12.0); Neutrophils # (auto) 3.2 10 ^3/uL (1.6-8.6); Neutrophils % (auto) 70.6 % (37.0-80.0); Red Blood Cells 2.37 10^6/uL (4.5-5.90)
[2020-04-08 06:08] LABS: Red Cell Distribution Width 20.4 % (11.8-14.3)
[2020-04-08 06:17] LABS: Calcium 7.2 mg/dL (8.5-10.1); Potassium 3.6 mmol/L (3.5-5.1)
[2020-04-08 06:19] LABS: BUN/Creatinine Ratio 9.7
[2020-04-08] MEDS: ACCU-CHEK COMFORT CURVE STRIP VI SCH ×4 (06:26→18:00)
[2020-04-08] MEDS: LEVOTHYROXINE SODIUM 25 MCG TAB PO SCH (06:47)
[2020-04-08] MEDS: levoFLOXacin 250MG 50 ML IV SCH (08:01)
[2020-04-08] MEDS: ASPirin 81 mg TAB PO SCH (08:01)
[2020-04-08 09:00] VITALS: BP 91/42
[2020-04-08 13:00] VITALS: BP 122/68
[2020-04-08 16:28] VITALS: BP 124/61
[2020-04-08] MEDS: ATORVASTATIN 20 MG TAB PO SCH (22:00)
[2020-04-08 22:09] VITALS: BP 115/71
[2020-04-09] MEDS ORDERED: SODIUM CHL 0.9% 1000 ML BAG XX ONE (07:00)
[2020-04-09] MEDS ORDERED: EPOETIN ALFA-EPBX 10,000 UNIT/1ML VIAL SC ONE (21:00)
== END 2020-04-08 22:30 | DRG 194 ==
LOC: EDSEX 07:18 → ER 07:18 → EDBD 07:18 → TELE 07:19 → TELE-WESTW 04-05 08:11 → ICU WEST 04-05 08:12 → TELE-WESTW 04-06 17:13
PROVIDERS: ADMIT Internal Medicine; ATTEND Internal Medicine
PROC: 30233N1 Transfusion of Nonautologous Red Blood Cells into Peripheral Vein, Percutaneous Approach (ICD-10-PCS; principal; 2020-04-07)
PROC: 5A1D70Z Performance of Urinary Filtration, Intermittent, Less than 6 Hours Per Day (ICD-10-PCS; 2020-04-07)
DX: I13.2 Hypertensive heart and chronic kidney disease with heart failure and with stage 5 chronic kidney disease, or end stage renal disease (principal); G92 Toxic encephalopathy; I21.4 Non-ST elevation (NSTEMI) myocardial infarction; R57.1 Hypovolemic shock; N18.6 End stage renal disease; E11.22 Type 2 diabetes mellitus with diabetic chronic kidney disease; E11.649 Type 2 diabetes mellitus with hypoglycemia without coma; L89.90 Pressure ulcer of unspecified site, unspecified stage; R13.10 Dysphagia, unspecified; I42.9 Cardiomyopathy, unspecified; I50.22 Chronic systolic (congestive) heart failure; Z20.822 Contact with and (suspected) exposure to COVID-19; D63.1 Anemia in chronic kidney disease; Z99.2 Dependence on renal dialysis; D50.9 Iron deficiency anemia, unspecified; E03.9 Hypothyroidism, unspecified; E78.5 Hyperlipidemia, unspecified; E87.6 Hypokalemia; F17.200 Nicotine dependence, unspecified, uncomplicated; D63.8 Anemia in other chronic diseases classified elsewhere; I25.10 Atherosclerotic heart disease of native coronary artery without angina pectoris; Z95.1 Presence of aortocoronary bypass graft; Z90.49 Acquired absence of other specified parts of digestive tract; I25.2 Old myocardial infarction; Z79.82 Long term (current) use of aspirin; Z79.899 Other long term (current) drug therapy; Z82.49 Family history of ischemic heart disease and other diseases of the circulatory system; Z83.3 Family history of diabetes mellitus; Z86.73 Personal history of transient ischemic attack (TIA), and cerebral infarction without residual deficits
CPT/HCPCS: 36415; 70450; 70551; 71045; 80048; 80053; 80076; 82140; 82306; 82607; 82962; 83036; 83540; 83550; 83605; 83735; 83880; 83970; 84100; 84439; 84443; 84480; 84484; 85025; 85610; 85730; 86850; 86900; 86901; 86920; 87040; 87081; 87426; 90935; 92610; 93005; 93306; 93971; 96365; 96367; 99291; G0378; J0885; J1956; J2543; J3480